=== PATIENT | female | born 1960 | race Caucasian/White ===

== ENCOUNTER 2016-07-08 18:14 | Inpatient (IN) | payer OTHER ==
[~2016-07-08] VITALS: Ht 172.7 cm; Wt 70.0 kg
--- NOTE | ~2016-07-08 | HC ---
[facility] [place] [address] CONSULTATION Name: PAWEL LYON Room #: 539-P ADM IN M.R.#: [id number] Admission: 07/08/16 Attend Phys: Griffin Little MD Discharge: Date of : 58 Report #: [id number] THIS REPORT FOR: //name// CC: Darrius Little REASON FOR CONSULTATION: End-stage renal disease. REASON FOR PRESENTATION: Unable to walk. HISTORY OF PRESENT ILLNESS: This is a 56-year-old with a newly diagnosed myeloma who had hardware placed on her left hip due to a pathological fracture. She has an end-stage renal disease, maintained on hemodialysis. She dialyzes every Thursday, and Thursday. She missed her dialysis yesterday. She presented to the emergency room a few days ago not being able to walk. Plain x-ray did not reveal any new findings. She continued to shepard with her daily social activities, for which she presented to the emergency room yet again yesterday and was admitted for further evaluation and management. On presentation, she was found to have lucent lesions on her left femoral neck along with left femoral condyle and what seems to be a new right femoral neck fracture. She was admitted for further evaluation and management. Her myeloma is a new diagnosis in the last 2-3 months and she is followed by oncology for that. She did not report any neurological symptoms, other than mild numbness in the left anterior thigh. I was asked to evaluate her and manage her dialysis. PAST MEDICAL HISTORY: 1. End-stage renal disease, maintained on dialysis. She previously was on peritoneal dialysis. 2. Hypertension. 3. Right oophorectomy. 4. Cholecystectomy. 5. Status post rotator cuff surgery on the right side. 6. Hernia repair. 7. Fistula. 8. Hypertension. 9. Hep C. 10. Hemorrhoid. 11. Recent left hip fracture with operation. 12. Myeloma. MEDICATIONS: 1. Carvedilol. 2. Atorvastatin. 3. Cinacalcet. 4. Sevelamer. ALLERGIES: No known drug allergies. [facility] [address] [place] [address] CONSULTATION Name: CAMRONPAWEL BRADY Room #: 539-P [facility] IN M.R.#: [id number] Admission: 07/08/16 Attend Phys: Griffin Little MD Discharge: Date of : 58 Report #: [id number] SOCIAL HISTORY: No drug or alcohol abuse. She lives by herself. REVIEW OF SYSTEMS: GENERAL: No fever or chills. CARDIOVASCULAR: No chest pain or palpitation. PULMONARY: No cough or hemoptysis. GASTROINTESTINAL: No nausea or vomiting. MUSCULOSKELETAL: Diffuse pains in both lower extremities, inability to walk with diffuse weakness. NEUROLOGIC: Significant for weakness. PHYSICAL EXAMINATION: GENERAL: She is alert and oriented, no apparent distress. VITAL SIGNS: Blood pressure is 140/96, temperature is 36.8. HEAD AND NECK: No jugular venous distention, no bruit, no thyromegaly. CHEST: Clear to auscultation bilaterally. CARDIOVASCULAR: No rub detected. ABDOMEN: Soft, nontender with no hepatosplenomegaly. LOWER EXTREMITIES: No gross deficits, but she is tender in both hip areas. No edema. LABORATORY DATA: Laboratory values reviewed. Chemistry values reviewed. BUN 50, creatinine 8.5 and calcium 8.3. Hemoglobin 9.5. ASSESSMENT, IMPRESSION AND PLAN: 1. End-stage renal disease. 2. Newly-diagnosed myeloma with what seems to be widespread skeletal metastasis. 3. Hypertension. 4. Status post coronary artery bypass graft. 5. Remote history of gastrointestinal bleeding. 6. Dialysis as scheduled every Thursday, and Thursday. 7. Orthopedic consultation. 8. Heme/Onc consultations. 9. Resume home medications. 10. Will need a [place] [facility] facility and I will talk with the social services about that. 11. I will have to discuss with the long-term plans for her skeletal involvement and whether we can use bisphosphonate on her condition or any of the new agents used to treat bone-related myeloma disease. I am not really sure [address] [address] CONSULTATION Name: PAWEL LYON Room #: 539-P [facility] IN M.R.#: [id number] Admission: 07/08/16 Attend Phys: Griffin Little MD Discharge: Date of : 58 Report #: [id number] about her chemotherapeutic regimen and treatment for her myeloma and I will address with . <ELECTRONICALLY SIGNED> By: Verena Anaya MD 07/11/16 0921 0849 1257 Verena Anaya MD /nt
--- NOTE | ~2016-07-08 | HC ---
[facility] [place] [address] CONSULTATION Name: PAWEL LYON Room #: 539-P ADM IN M.R.#: [id number] Admission: 07/08/16 Attend Phys: Griffin Little MD Discharge: Date of : 58 Report #: [id number] THIS REPORT FOR: //name// CC: Darrius Little DATE OF SERVICE: 07/09/2016 REQUESTING PHYSICIAN: Griffin Little M.D. REASON FOR CONSULTATION: Left hip pain. ALLERGIES: Reported allergy to MORPHINE. PAST MEDICAL HISTORY: Myeloma and end-stage renal disease, on hemodialysis. PAST SURGICAL HISTORY: Previous right hip short IM nail, left hip long IM nail placed for prophylaxis of impending fracture earlier in [address] Sahu. Multiple dialysis access procedures. MEDICATIONS: In the hospital, Lipitor, Lyrica, Colace, Sensipar, Coreg, Renvela, pantoprazole, heparin and tramadol. FAMILY HISTORY: Noncontributory. REVIEW OF SYSTEMS: Positive for acute left hip pain. Negative for fever, chills, drainage, nausea, vomiting or diarrhea. SOCIAL HISTORY: The patient lives in an apartment alone. She was recently discharged from inpatient rehab. She denies any tobacco, alcohol or drug abuse. HISTORY OF PRESENT ILLNESS: The patient is a 56-year-old female with end-stage renal disease and metastatic myeloma, who was recently admitted to the hospital earlier in 2016 with left hip pain. Imaging indicated that she had an impending fracture of the femoral neck and so she underwent prophylactic IM nail fixation. This improved her mobility and she made good progress and she was discharged to inpatient rehab. She returned home where she has approximately 20 stairs up to her apartment and has significant difficulty negotiating these. She is unable to use the walker as she has on the stairs. She has had progressive left hip pain that began several days ago and progressed to the point that she was unable to go to dialysis on Thursday and has prompted a trip to the emergency room and she was admitted. She reports since being in bed for the past day or so, that her left hip pain is feeling better. PHYSICAL EXAMINATION: VITAL SIGNS: Temperature 36.8, pulse 98, respirations 16, blood pressure 142/[address] [address] CONSULTATION Name: PAWEL LYON Room #: 539-P [facility] IN M.R.#: [id number] Admission: 07/08/16 Attend Phys: Griffin Little MD Discharge: Date of : 58 Report #: [id number] and pulse ox 96%. GENERAL: She is a healthy-appearing female, alert and oriented, in no acute distress, lying supine in the hospital bed. EXTREMITIES: Right lower extremity, there is no tenderness to palpation. She has no pain with logroll. She has no pain with Stinchfield. There are no skin changes or masses palpable. She has a grossly normal neurovascular examination at her baseline. Left lower extremity, she has pain with active hip flexion, pain with Stinchfield. There is minimal pain with passive hip flexion. She has no tenderness on anterior, lateral or posterior on the hip. Logroll is negative. The wound is healed, without signs of infection. She has a grossly normal neurovascular examination. The skin is normal appearing. The pelvis is not painful to compression or rocking and the symphysis is only mildly tender. LABORATORY DATA: White blood cell count is 6.6. Differential has 68% neutrophils. IMAGING: A CT scan of the pelvis and femur was obtained. There is stable, well-positioned IM nail on the right hip, that is short nail. There is a stable well-positioned long IM nail of the left hip and femur. There are multiple areas of lytic lesions throughout the pelvis, acetabula and femoral heads and neck. There is a cortical erosion of the anterior aspect of the femoral head on the right hip. There is no evidence of an acute injury on the left hip. IMPRESSION: A 56-year-old female with metastatic myeloma, status post prophylactic fixation of left femoral neck impending fracture in 2017 with previous treatment of her right hip fracture, with acute onset of left hip pain. PLAN: In reviewing the CT scan, I do not see any evidence of an acute mechanical or orthopedic issue. The implant looks stable. There are no signs of an impending fracture on the acetabular side that I appreciate. I discussed with her the imaging and suggested that we try additional physical therapy as the hip is getting better since she has been in the hospital and resting. I suspect that her apartment arrangements with multiple flight of stairs are contributing to her pain and limited mobility. Recommendation would be for inpatient rehab stay and ideally a better long-term living arrangements that will accommodate her decreased mobility secondary to these multiple metastatic lesions. <ELECTRONICALLY SIGNED> By: Geo Neal MD 07/10/16 1130 2034 0225 Geo Neal MD /nt
[2016-07-08 18:14] VITALS: BP 134/79
[~2016-07-08 18:14] MED LIST: ATORVASTATIN CA10 MG PO; AUGMENTIN 500-1 EACH PO; AUGMENTIN 875875 MG PO; BISCOLAX10 MG RECTAL; CEFAZOLIN 1GM VI1 G1 IP; CIPROFLOXACIN500 M1 PO; COLACE100 MG PO; COREG25 MG PO; DEXILANT60 MG PO; DIALYVITE 8000.8 MG PO; DIALYVITE TABL1 EACH PO; DIANEAL IV; ENOXAPARIN30 MG/0.1 SUBQ; EPOGEN3000 UNIT/ IJ; FLONASE 0.05%50 MCG NASAL; FLOVENT HFA 2220 MCG; HEPARIN SO5000 UNIT2 SUBQ; HERBAL SUPPLEMENT; HYDROCODON-ACE1 EAC7 PO; HYDROCODONE-AP1 EAC6 PO; IBUPROFEN 200200 M1 PO; KLOR-CON 1010 MEQ; LIPITOR10 MG PO; LISINOPRIL20 MG; LOPRESSOR50; LOPRESSOR50 PO; LYRICA 50 MG50 MG PO; LYRICA25 MG PO; MEGESTROL ACETA20 MG PO; MEGESTROL ACETA40 MG PO; MIRALAX17 GM PO; MUCINEX1200 MG PO; MULTIVITAMINS1 EAC7 PO; NEPHROCAPS SOFT1 CAP PO; NORCO 5-325 TA1 EACH PO; NORVASC10 MG PO; OMEPRAZOLE 20 M20 M1 PO; ONDANSETRON HCL4 M2 PO; OXYCODONE HCL 55 MG PO; PHENERGAN 25 MG25 M1 PO; PHENERGAN12.5 M2 RECTAL; PRILOSEC 20 MG20 MG PO; PRILOSEC10 MG PO; PROAIR HFA8.5 GM INH; PROMETHAZINE12.5 M1 PO; RENAL CAPS SOFTG1 MG; RENVELA800 MG PO; SENNA PO; SENSIPAR 30 MG30 M1 PO; SYMBICORT160 MCG/4. INH; TOPROL XL50 MG PO; TRAMADOL 50 MG50 MG PO; TUMS PO; TUSSIONEX PENN473 ML PO; TUSSIONEX PENNKI1 ML PO; VANCOMYCIN; VANCOMYCIN1.5 GM/150 IP; VISTARIL 25 MG25 M1 PO; ZOFRAN ODT4 MG PO; ZPAK PO; [UNRECOGNIZED DRUG - OTHER] IV; [UNRECOGNIZED DRUG - OTHER] IV
[2016-07-08 19:18] LABS: ABSOLUTE NEUTROPHILS 4.6 thou/uL (1.4-8.2); BASOPHILS 0.6 % (0.0-2.0); EOSINOPHILS 2.8 % (0.0-3.0); HEMATOCRIT 28.6 % (37.0-47.0); HEMOGLOBIN 9.5 gm/dL (12.0-15.0); MCH 30.4 pg (26.0-34.0); MCHC 33.2 g/dL (28.0-37.0); MCV 91.6 fL (80.0-100.0); MONOCYTES 8.8 % (1.0-8.0); PLATELET COUNT 208 thou/uL (150-400); POLYS 68.8 % (36.0-66.0); RBC 3.12 mil/uL (4.20-5.00); RDW 17.5 % (10.5-14.5); WBC 6.6 thou/uL (4.0-11.0)
[2016-07-08 19:20] LABS: MANUAL DIFF NO
[2016-07-08 19:23] LABS: CALCIUM 8.4 mg/dL (8.5-10.1); POTASSIUM 4.2 mmol/L (3.5-5.1)
[2016-07-08 20:00] VITALS: BP 140/87
[2016-07-08 21:10] VITALS: BP 166/91
[2016-07-08] MEDS ORDERED: TRAMADOL 50 MG50 MG PO (21:33)
[2016-07-08 21:55] VITALS: BP 121/84
[2016-07-08 23:59] VITALS: BP 140/87
[2016-07-09 04:00] VITALS: BP 147/89
[2016-07-09 07:02] LABS: ALBUMIN 2.7 g/dL (3.4-5.0); CALCIUM 8.3 mg/dL (8.5-10.1); CREATININE 8.5 mg/dL (0.6-1.0); POTASSIUM 4.4 mmol/L (3.5-5.1); TOTAL BILIRUBIN 0.3 mg/dL (<0.1-1.0); TOTAL PROTEIN 6.7 g/dL (6.4-8.2)
[2016-07-09 07:53] VITALS: BP 142/96
[2016-07-09 15:48] VITALS: BP 139/90
[2016-07-09 20:00] VITALS: BP 138/73
[2016-07-10 04:45] VITALS: BP 140/88
[2016-07-10 12:14] VITALS: BP 125/76
[2016-07-10 15:46] VITALS: BP 133/46
[2016-07-10 20:00] VITALS: BP 144/89
[2016-07-11 03:35] LABS: HEMATOCRIT 26.7 % (37.0-47.0); HEMOGLOBIN 9.2 gm/dL (12.0-15.0); MCHC 34.6 g/dL (28.0-37.0); MCV 89.5 fL (80.0-100.0); RBC 2.98 mil/uL (4.20-5.00); RDW 17.1 % (10.5-14.5); WBC 4.7 thou/uL (4.0-11.0)
[2016-07-11 03:42] LABS: ALBUMIN 2.6 g/dL (3.4-5.0); CALCIUM 8.9 mg/dL (8.5-10.1); PHOSPHORUS 3.5 mg/dL (2.5-4.9); POTASSIUM 4.4 mmol/L (3.5-5.1)
[2016-07-11 03:44] LABS: CREATININE 4.9 mg/dL (0.6-1.0)
[2016-07-11 04:00] VITALS: BP 142/84
[2016-07-11 09:11] VITALS: BP 128/89
[2016-07-11 20:21] VITALS: BP 125/76
[2016-07-12 16:55] VITALS: BP 125/71
[2016-07-13 11:33] VITALS: BP 115/82
[2016-07-13 16:01] VITALS: BP 127/83
[2016-07-13 19:41] VITALS: BP 126/91
[2016-07-14 04:00] VITALS: BP 132/83
[2016-07-14 07:35] VITALS: BP 139/93
[2016-07-14 16:57] VITALS: BP 137/83
[2016-07-14 20:10] VITALS: BP 130/80
[2016-07-15 03:45] VITALS: BP 123/77
[2016-07-15 07:20] VITALS: BP 133/92
[2016-07-15] MEDS ORDERED: COLACE 100 MG100 MG PO (14:54)
[2016-07-15] MEDS ORDERED: NEXIUM40 MG PO (14:54)
== END 2016-07-15 17:45 | DRG 840 ==
LOC: ER 18:14 → 5S 20:08 → EROBS 20:08 → 5S 21:15
PROVIDERS: Emergency Medicine; Hospitalist; Nurse Practitioner
PROC: 5A1D60Z (ICD-10-PCS; principal; 2016-07-10)
DX: C90.00 Multiple myeloma not having achieved remission (principal); N18.6 End stage renal disease; M84.451A Pathological fracture, right femur, initial encounter for fracture; I12.0 Hypertensive chronic kidney disease with stage 5 chronic kidney disease or end stage renal disease; R26.2 Difficulty in walking, not elsewhere classified; M19.90 Unspecified osteoarthritis, unspecified site; G47.33 Obstructive sleep apnea (adult) (pediatric); I25.10 Atherosclerotic heart disease of native coronary artery without angina pectoris; F32.9 Major depressive disorder, single episode, unspecified; M89.9 Disorder of bone, unspecified; G56.00 Carpal tunnel syndrome, unspecified upper limb; D63.8 Anemia in other chronic diseases classified elsewhere; Z88.6 Allergy status to analgesic agent; Z90.49 Acquired absence of other specified parts of digestive tract; Z90.721 Acquired absence of ovaries, unilateral; Z95.1 Presence of aortocoronary bypass graft; Z87.81 Personal history of (healed) traumatic fracture; Z86.19 Personal history of other infectious and parasitic diseases; Z82.49 Family history of ischemic heart disease and other diseases of the circulatory system; Z99.2 Dependence on renal dialysis
CPT/HCPCS: 10086; 32100

== ENCOUNTER 2016-08-12 17:08 | Emergency (ER) | payer OTHER ==
[~2016-08-12] VITALS: Ht 172.7 cm; Wt 68.0 kg
--- NOTE | ~2016-08-12 | EKG ---
[address] [employer] [place] [address] ELECTROCARDIOGRAM REPORT Name: PAWEL LYON Room #: DEP [facility]#: [id number] Admission: 08/12/16 Attend Phys: Discharge: 08/12/16 Date of : 58 Report #: [id number] THIS REPORT FOR: //name// [facility] ED Test Date: 2016-08-12 Test Time: 17:34:57 Pat Name: PAWEL LYON Department: Room: Gender: F Informatics Coordinator: Lele DEWITT : 1960 Requested By: Jb Eason Order Number: [id number] MD: Ravi Almaraz Measurements Intervals [place] Rate: 105 P: 2 ID: [id number] QRS: 117 QRSD: 125 T: -15 QT: 385 QTc: 509 Interpretive Statements Sinus tachycardia RBBB and LPFB Compared to ECG 05/26/2016 12:11:15 Left posterior fascicular block now present Right bundle-branch block now present Electronically Signed On 08-13-2016 7:45:40 CDT by Ravi Almaraz [email or web address] <ELECTRONICALLY SIGNED> By: Ravi Almaraz MD, [facility] 08/13/16 0745 1734 1734 Ravi Almaraz MD, [facility] /EPI
[~2016-08-12 17:08] MED LIST changes: +COLACE 100 MG100 MG PO; +NEXIUM40 MG PO
[2016-08-12 17:44] LABS: ABSOLUTE NEUTROPHILS 4.4 thou/uL (1.4-8.2); BASOPHILS 0.7 % (0.0-2.0); EOSINOPHILS 3.7 % (0.0-3.0); HEMATOCRIT 27.7 % (37.0-47.0); HEMOGLOBIN 9.5 gm/dL (12.0-15.0); LYMPHOCYTES 13.7 % (24.0-44.0); MCH 31.3 pg (26.0-34.0); MCHC 34.5 g/dL (28.0-37.0); MCV 90.7 fL (80.0-100.0); MONOCYTES 8.2 % (1.0-8.0); PLATELET COUNT 270 thou/uL (150-400); POLYS 73.7 % (36.0-66.0); RBC 3.05 mil/uL (4.20-5.00); RDW 16.9 % (10.5-14.5)
[2016-08-12 17:47] LABS: MANUAL DIFF NO
[2016-08-12 17:49] LABS: CALCIUM 9.3 mg/dL (8.5-10.1); CREATININE 3.9 mg/dL (0.6-1.0); POTASSIUM 3.8 mmol/L (3.5-5.1)
[2016-08-12 17:53] LABS: TOTAL BILIRUBIN 0.3 mg/dL (<0.1-1.0); TOTAL PROTEIN 7.3 g/dL (6.4-8.2)
[2016-08-12] MEDS ORDERED: TRAMADOL 50 MG50 MG PO (18:24)
== END 2016-08-12 19:25 | disposition home or self-care (01) ==
LOC: ER 17:08
PROVIDERS: Emergency Medicine
DX: I12.0 Hypertensive chronic kidney disease with stage 5 chronic kidney disease or end stage renal disease (principal); N18.6 End stage renal disease; Z99.2 Dependence on renal dialysis; C90.00 Multiple myeloma not having achieved remission; G56.03 Carpal tunnel syndrome, bilateral upper limbs; M19.90 Unspecified osteoarthritis, unspecified site; Z95.5 Presence of coronary angioplasty implant and graft; Z90.721 Acquired absence of ovaries, unilateral; Z88.5 Allergy status to narcotic agent

== ENCOUNTER 2016-08-19 10:06 | Inpatient (IN) | payer OTHER ==
[~2016-08-19] VITALS: Ht 172.7 cm; Wt 68.0 kg
--- NOTE | ~2016-08-19 | HC ---
[facility] [place] [address] CONSULTATION Name: PAWEL LYON Room #: 440-P [facility] IN M.R.#: [id number] Admission: 08/19/16 Attend Phys: Griffin Little MD Discharge: 08/22/16 Date of : 58 Report #: [id number] THIS REPORT FOR: //name// CC: Darrius Little DATE OF SERVICE: 08/19/2016 ATTENDING PHYSICIAN: Griffin Little M.D. REASON FOR CONSULTATION: End-stage renal disease. HISTORY OF PRESENT ILLNESS: This is a 56-year-old patient well known to our service with recently diagnosed multiple myeloma, metastatic to bones, has been rather debilitated and recently had surgery for carpal tunnel on her left hand. She had worsening debilitation, inability to get around, has missed the last week of dialysis treatments and I was taken by ambulance to the Emergency Room with complaints of confusion and poor appetite. PAST MEDICAL HISTORY: 1. She has multiple myeloma, multiple bony lesions, particularly the pubis symphysis, femoral necks and other bony areas. She has had radiation therapy to the left femoral area and hardware placed there and removed hardware on the right hip for a hip fracture, but that was several years ago. She has been on dialysis for several years as well initially PD and now hemo. She has also had previous coronary bypass surgery as well as a recent left carpal tunnel surgery, right rotator cuff repair. 2. History of hepatitis C. She also had prior cholecystectomy. REVIEW OF SYSTEMS: GENERAL: She has been feeling poorly. EYES: Her vision has been okay. ENT: Hearing okay and swallows okay. No mouth sores or ulcers. ENDOCRINE: No diabetes or thyroid disease. RESPIRATORY: She does get easily short-winded. CARDIAC: She had previous coronary bypass and she has been having some chest pains. GASTROINTESTINAL: She has poor appetite with occasional vomiting. GENITOURINARY: Little urine output. NEUROLOGIC: Generalized weakness and musculoskeletal pain in both hands particularly the left one, pain in the hip areas with walking, weakness and debility, difficulty getting around. PSYCHIATRIC: Denies depression or anxiety. PHYSICAL EXAMINATION: GENERAL: This is a somewhat chronically ill appearing patient. [address] [address] CONSULTATION Name: PAWEL LYON Room #: 440-P [facility] IN M.R.#: [id number] Admission: 08/19/16 Attend Phys: Griffin Little MD Discharge: 08/22/16 Date of : 58 Report #: [id number] SKIN: Unremarkable. SKELETAL: Nonobese. HEENT: Extraocular movements are full. Vision is intact. Hearing is intact. Mucous membranes are moist. NECK: Veins are slightly distended. CHEST: Shows diminished breath sounds at the bases. HEART: Distant. ABDOMEN: Soft and nontender. EXTREMITIES: Show no edema. NEUROLOGIC: Shows her to be somewhat confused and mixing up recent events and clearly not herself, as well as anxious, little bit of tremor, generalized weakness and symmetric. LABORATORY DATA: Creatinine 12.9, serum CO2 only 19, potassium elevated at 5.2, hemoglobin 9.6. ASSESSMENT AND PLAN: 1. Uremia with confusion. As she has not dialyzed in a week, she is getting increasingly confused and forgetful, confusing events. She will need dialysis and may be further workup. 2. Hyperkalemia. Potassium is up a little bit. She will need dialysis and careful followup. 3. End-stage renal disease with metabolic encephalopathy. 4. Hypertension. Blood pressure is up. We will acutely dialyze her and take some fluid off. 5. Metastatic multiple myeloma with multiple lytic lesions. She has received some localized radiation. She has not yet received chemotherapy, followed by Dr. Ludmila Mina. <ELECTRONICALLY SIGNED> By: Rudi Locke MD 08/25/16 1012 1458 0220 Anton Vega MD /nt
--- NOTE | ~2016-08-19 | HC ---
[facility] [place] [address] CONSULTATION Name: PAWEL LYON Room #: 440-P ADM IN M.R.#: [id number] Admission: 08/19/16 Attend Phys: Griffin Little MD Discharge: Date of : 58 Report #: [id number] THIS REPORT FOR: //name// CC: Darrius Omid Griffin Little DATE OF SERVICE: 08/20/2016 DATE OF CONSULTATION: 08/20/2016 ATTENDING: Griffin iLttle MD REASON FOR CONSULTATION: Chest pain. HISTORY OF PRESENT ILLNESS: This is a 56-year-old female patient who has a history of multiple myeloma; end-stage renal disease, on dialysis; coronary artery disease, having undergone aortocoronary bypass grafting one year ago, presented for left-sided discomfort. Upon questioning, the patient denies having any chest pain, pressure, tightness or heaviness. She states she presented to the Emergency Room principally with complaints of weakness. Review of the records state that she told that she was having soreness in the left chest region that was fairly constant. She did state it was worse with inspiration and expiration. She denies any exertional symptoms. Prior to her bypass, she had no symptoms whatsoever. She has no nocturnal symptomatology. No orthopnea or PND. No syncope or near syncope. No palpitations. She does have what appears to be a pathological fracture from her multiple myeloma and causes her ambulation to be quite limited. She does use a walker. She states that she has been having significant nausea and vomiting, although that is denied to the ER doctor as well as the attending physician. No irregular rhythms were identified on the monitor. PAST MEDICAL HISTORY: Significant for: 1. Chronic renal disease. 2. Multiple myeloma, by history. 3. Atypical chest discomfort. 4. Carpal tunnel syndrome. 5. Hypertension. 6. Hepatitis C. 7. GI bleed. 8. Osteoarthritis. PAST SURGICAL HISTORY: Significant for: 1. Right oophorectomy and fallopian tubectomy. 2. Right rotator cuff tear. 3. Right leg ligament tear. 4. Hernia repair. [facility] [address] [place] [address] CONSULTATION Name: CAMRONPAWEL BRADY Room #: 440-P ADM IN M.R.#: [id number] Admission: 08/19/16 Attend Phys: Griffin Little MD Discharge: Date of : 58 Report #: [id number] 5. Carpal tunnel surgery, left arm. 6. Dialysis catheter placement. 7. Aortocoronary bypass grafting. 8. Stabilization of left hip fracture. DIAGNOSTIC AND LABORATORY DATA: Electrocardiogram demonstrated sinus mechanism, nonspecific ST-T wave changes. Laboratory demonstrates hemoglobin and hematocrit of 9.6 and 29.0 with a platelet count of 286,000. BUN and creatinine of 90 and 12.9. Potassium was 5.2 on admission. Troponins were less than 0.04. Radiologic demonstrates plate-like atelectasis left lung with no infiltrates. No acute cardiac process. MEDICATIONS: Ultram, Nexium, Colace, Sensipar, Coreg, Lyrica, ____ and Lipitor. She discontinued the Renvela. REVIEW OF SYSTEMS: Except for symptoms previously mentioned and those commensurate with comorbid state, the 10-point review of systems is negative. PHYSICAL EXAMINATION: GENERAL: Well-developed white female, resting comfortably in no acute distress. VITAL SIGNS: Noted and reviewed in the chart. HEENT: Normocephalic, atraumatic. Pupils are equal, round, reactive to light and accommodation. Extraocular muscles are intact. Sclerae and conjunctivae are anicteric. NECK: JVD is normal. Carotid upstrokes are bilaterally symmetrical. No bruits are heard. No thyromegaly. No lymphadenopathy. LUNGS: Clear to auscultation. No wheezes, rhonchi or crackles. No CVA tenderness. CARDIAC: Demonstrates a regular rhythm. Normal first and second heart sounds. No ventricular or atrial gallops, no rubs noted. No murmurs. No lifts or heaves, PMI normal. ABDOMEN: Soft, nontender, nondistended. Normal bowel sounds. EXTREMITIES: Without cyanosis, clubbing or edema. Distal pulses are intact. DTR symmetrical. NEUROLOGICAL: Cranial nerves 2-12 are grossly normal and symmetrical. PSYCHIATRIC: Alert, oriented with normal affect. SKIN: Warm and dry. IMPRESSION AND PLAN: 1. Chest pain, this does not appear to be cardiac in nature. This is more noncardiac and a chronic situation. In view of this, I would not proceed with anything further at this juncture to further delineate or evaluate these symptoms. [address] [address] CONSULTATION Name: PAWEL LYON Room #: 440-P ADM IN M.R.#: [id number] Admission: 08/19/16 Attend Phys: Griffin Little MD Discharge: Date of : 58 Report #: [id number] 2. Coronary artery disease by history, status post bypass. This was identified by perfusion scanning. Asymptomatic, appears to be stable at the present time. 3. Hypertension. Blood pressure seems to be adequately controlled on the current regimen, continue as is. 4. Multiple myeloma as per primary care oncology. DICTATION ENDS HERE <ELECTRONICALLY SIGNED> By: Juan Pablo Alaniz MD 08/21/16 2219 1841 0106 Juan Pablo Alaniz MD /nt
--- NOTE | ~2016-08-19 | EKG ---
[address] [address] ELECTROCARDIOGRAM REPORT Name: PAWEL LYON Room #: 440-P ADM IN M.R.#: [id number] Admission: 08/19/16 Attend Phys: Griffin Little MD Discharge: Date of : 58 Report #: [id number] THIS REPORT FOR: //name// [facility] ED Test Date: 2016-08-19 Test Time: 10:11:04 Pat Name: PAWEL LYON Department: Room: [facility] Gender: F Learning Disabilities Resource Teacher: MZOOK : 1960 Requested By: Ricardo Hidalgo Order Number: [id number] MD: Ganesh Flynn Measurements Intervals [place] Rate: 87 P: 41 HI: 189 QRS: 91 QRSD: 120 T: 7 QT: 383 QTc: 461 Interpretive Statements Sinus rhythm RBBB and LPFB Compared to ECG 08/12/2016 17:34:57 Sinus tachycardia no longer present Electronically Signed On 08-19-2016 17:10:41 CDT by Ganesh Flynn [email or web address] <ELECTRONICALLY SIGNED> By: Ganesh Flynn MD 08/19/16 6106 1011 1011 Ganesh Flynn MD /JANICE
[2016-08-19 10:07] VITALS: BP 172/98
[2016-08-19 10:21] LABS: ABSOLUTE NEUTROPHILS 4.7 thou/uL (1.4-8.2); BASOPHILS 0.5 % (0.0-2.0); EOSINOPHILS 2.8 % (0.0-3.0); HEMOGLOBIN 9.6 gm/dL (12.0-15.0); MCH 30.9 pg (26.0-34.0); MCV 93.7 fL (80.0-100.0); MONOCYTES 6.7 % (1.0-8.0); PLATELET COUNT 286 thou/uL (150-400); RBC 3.09 mil/uL (4.20-5.00); RDW 16.9 % (10.5-14.5); WBC 6.3 thou/uL (4.0-11.0)
[2016-08-19 10:22] LABS: MANUAL DIFF NO
[2016-08-19 10:35] LABS: ANION GAP 21 mmol/L (7-16); BUN 90 mg/dL (7-18); CALCIUM 9.6 mg/dL (8.5-10.1); CHLORIDE 98 mmol/L (98-107); CO2 19 mmol/L (21-32); CREATININE 12.9 mg/dL (0.6-1.0); GLUCOSE 95 mg/dL (74-106); POTASSIUM 5.2 mmol/L (3.5-5.1); SODIUM 138 mmol/L (136-145)
[2016-08-19 10:39] LABS: NT-PRO BRAIN NAT PEPTIDE 9873 pg/mL (<300); TROPONIN-I < 0.04 ng/mL (<0.04-0.07)
[2016-08-19 13:09] VITALS: BP 169/100
[2016-08-19 14:16] VITALS: BP 172/112
[2016-08-19 16:20] VITALS: BP 126/72
[2016-08-19 19:52] VITALS: BP 150/89
[2016-08-20 01:33] LABS: HEMATOCRIT 28.6 % (37.0-47.0); HEMOGLOBIN 9.8 gm/dL (12.0-15.0); MCH 31.2 pg (26.0-34.0); MCHC 34.2 g/dL (28.0-37.0); MCV 91.2 fL (80.0-100.0); RBC 3.14 mil/uL (4.20-5.00); RDW 16.3 % (10.5-14.5); WBC 5.8 thou/uL (4.0-11.0)
[2016-08-20 01:49] LABS: ANION GAP 13 mmol/L (7-16); BUN 31 mg/dL (7-18); CALCIUM 9.4 mg/dL (8.5-10.1); CHLORIDE 97 mmol/L (98-107); CO2 28 mmol/L (21-32); GLUCOSE 127 mg/dL (74-106); SODIUM 138 mmol/L (136-145); TROPONIN-I < 0.04 ng/mL (<0.04-0.07)
[2016-08-20 01:50] LABS: CREATININE 6.3 mg/dL (0.6-1.0); POTASSIUM 4.1 mmol/L (3.5-5.1)
[2016-08-20 05:30] VITALS: BP 147/93
[2016-08-20 08:00] VITALS: BP 145/94
[2016-08-20 08:28] VITALS: BP 145/94
[2016-08-20 15:57] VITALS: BP 168/89
[2016-08-20 17:09] LABS: HEP B SURFACE Ab(ANTI-HBS Reactive (())
[2016-08-20 19:37] VITALS: BP 147/89
[2016-08-21 04:14] VITALS: BP 129/82
[2016-08-21 12:00] VITALS: BP 129/82
[2016-08-21 12:55] VITALS: BP 138/87
[2016-08-21 16:03] VITALS: BP 145/82
[2016-08-21 20:05] VITALS: BP 133/70
[2016-08-22 04:15] VITALS: BP 140/92
[2016-08-22 08:00] VITALS: BP 137/73
== END 2016-08-22 16:38 | DRG 313 ==
LOC: ER 10:06 → EROBS 12:42 → 4S 12:42
PROVIDERS: Emergency Medicine; Internal Medicine; Internal Medicine Nephrology
PROC: 5A1D60Z (ICD-10-PCS; principal; 2016-08-19)
DX: R07.89 Other chest pain (principal); N18.6 End stage renal disease; G93.41 Metabolic encephalopathy; I12.0 Hypertensive chronic kidney disease with stage 5 chronic kidney disease or end stage renal disease; C90.00 Multiple myeloma not having achieved remission; C79.51 Secondary malignant neoplasm of bone; R26.9 Unspecified abnormalities of gait and mobility; M62.81 Muscle weakness (generalized); I25.10 Atherosclerotic heart disease of native coronary artery without angina pectoris; M19.90 Unspecified osteoarthritis, unspecified site; E87.5 Hyperkalemia; Z92.3 Personal history of irradiation; Z90.49 Acquired absence of other specified parts of digestive tract; Z90.721 Acquired absence of ovaries, unilateral; Z95.1 Presence of aortocoronary bypass graft; Z99.2 Dependence on renal dialysis; Z88.5 Allergy status to narcotic agent; Z87.81 Personal history of (healed) traumatic fracture; Z79.899 Other long term (current) drug therapy; Z86.19 Personal history of other infectious and parasitic diseases; Z90.79 Acquired absence of other genital organ(s)

== ENCOUNTER 2016-11-19 23:16 | Emergency (ER) | payer OTHER ==
[~2016-11-19] VITALS: Ht 172.7 cm; Wt 68.0 kg
--- NOTE | ~2016-11-19 | EKG ---
[address] [place] [address] [place] [address] ELECTROCARDIOGRAM REPORT Name: PAWEL LYON [facility] [id number] Admission: 11/19/16 Attend Phys: Discharge: 11/20/16 Date of : 58 Report #: [id number] THIS REPORT FOR: //name// [facility] ED Test Date: 2016-11-19 Test Time: 23:46:13 Pat Name: PAWEL LYON Department: Room: Gender: F Supervisor Model Making: KELLY : 1960 Requested By: Leena Dukes Order Number: [id number] MD: Ravi Almaraz Measurements Intervals [place] Rate: 91 P: 35 IA: 198 QRS: 88 QRSD: 125 T: 11 QT: 389 QTc: 479 Interpretive Statements Sinus rhythm Borderline prolonged IA interval Right bundle branch block Compared to ECG 08/19/2016 10:11:04 No significant change was found Electronically Signed On 11-20-2016 8:00:33 CDT by Ravi Almaraz [email or web address] <ELECTRONICALLY SIGNED> By: Ravi Almaraz MD, [facility] 11/20/16 0800 45 45 Ravi Almaraz MD, [facility] /EPI
[~2016-11-19 23:16] MED LIST changes: +ACETAMINOPHEN-1 EAC1 PO; +ROBAXIN500 MG PO
[2016-11-20 00:31] LABS: ABSOLUTE NEUTROPHILS 3.4 thou/uL (1.4-8.2); BASOPHILS 0.7 % (0.0-2.0); EOSINOPHILS 3.7 % (0.0-3.0); HEMATOCRIT 31.2 % (37.0-47.0); HEMOGLOBIN 10.3 gm/dL (12.0-15.0); LYMPHOCYTES 19.5 % (24.0-44.0); MCH 28.8 pg (26.0-34.0); MCHC 33.1 g/dL (28.0-37.0); MCV 87.1 fL (80.0-100.0); MONOCYTES 9.2 % (1.0-8.0); PLATELET COUNT 283 thou/uL (150-400); POLYS 66.9 % (36.0-66.0); RBC 3.58 mil/uL (4.20-5.00); WBC 5.1 thou/uL (4.0-11.0)
[2016-11-20 00:39] LABS: CALCIUM 8.9 mg/dL (8.5-10.1); CREATININE 7.9 mg/dL (0.6-1.0); POTASSIUM 5.4 mmol/L (3.5-5.1)
[2016-11-20 00:41] LABS: MANUAL DIFF NO
== END 2016-11-20 02:15 | disposition home or self-care (01) ==
LOC: ER 23:16
PROVIDERS: Emergency Medicine
DX: R53.81 Other malaise (principal); R53.83 Other fatigue; K64.9 Unspecified hemorrhoids; M19.90 Unspecified osteoarthritis, unspecified site; I10 Essential (primary) hypertension; Z99.2 Dependence on renal dialysis; Z88.5 Allergy status to narcotic agent; Z90.49 Acquired absence of other specified parts of digestive tract; Z90.721 Acquired absence of ovaries, unilateral; Z95.5 Presence of coronary angioplasty implant and graft; Z86.19 Personal history of other infectious and parasitic diseases; Z98.890 Other specified postprocedural states

== ENCOUNTER 2016-12-03 15:32 | Emergency (ER) | payer OTHER ==
[~2016-12-03] VITALS: Ht 172.7 cm; Wt 68.0 kg
== END 2016-12-03 16:58 | disposition home or self-care (01) ==
LOC: ER 15:32
DX: S92.512A Displaced fracture of proximal phalanx of left lesser toe(s), initial encounter for closed fracture (principal); I10 Essential (primary) hypertension; M19.90 Unspecified osteoarthritis, unspecified site; Z95.1 Presence of aortocoronary bypass graft; Z98.890 Other specified postprocedural states; Z85.830 Personal history of malignant neoplasm of bone; Z99.2 Dependence on renal dialysis; Z88.5 Allergy status to narcotic agent; W22.8XXA Striking against or struck by other objects, initial encounter; Y93.01 Activity, walking, marching and hiking; Y92.89 Other specified places as the place of occurrence of the external cause; Y99.8 Other external cause status

== ENCOUNTER 2016-12-29 07:36 | Emergency (ER) | payer OTHER ==
[~2016-12-29] VITALS: Ht 172.7 cm; Wt 68.0 kg
== END 2016-12-29 10:04 | disposition home or self-care (01) ==
LOC: ER 07:36
DX: S32.591A Other specified fracture of right pubis, initial encounter for closed fracture (principal); S32.592A Other specified fracture of left pubis, initial encounter for closed fracture; R42 Dizziness and giddiness; I10 Essential (primary) hypertension; I25.10 Atherosclerotic heart disease of native coronary artery without angina pectoris; Z95.1 Presence of aortocoronary bypass graft; Y99.8 Other external cause status; Y92.39 Other specified sports and athletic area as the place of occurrence of the external cause; Y93.89 Activity, other specified; W18.30XA Fall on same level, unspecified, initial encounter

== ENCOUNTER 2017-01-03 11:50 | Inpatient (IN) | payer OTHER ==
[~2017-01-03] VITALS: Ht 172.7 cm; Wt 71.0 kg
--- NOTE | ~2017-01-03 | HC ---
[facility] [place] [address] CONSULTATION Name: PAWEL LYON Room #: 426-P [facility] IN M.R.#: [id number] Admission: 01/03/17 Attend Phys: Luanne Weaver Discharge: 01/06/17 Date of : 58 Report #: [id number] THIS REPORT FOR: //name// CC: Darrius Weaver DATE OF SERVICE: 01/03/2017 NEPHROLOGY CONSULTATION DATE OF SERVICE: 01/03/2017 ATTENDING PHYSICIAN: Dr. Weaver. REASON FOR CONSULTATION: End-stage renal disease and hyperkalemia. HISTORY OF PRESENT ILLNESS: Chronic dialysis patient, well known to our service, has through the course of this year developed the diagnosis of multiple myeloma with multiple metastatic lesions, currently on chemotherapy. She is status post radiation therapy to her left femur and pelvic area for myeloma lesions. She has become progressively debilitated, fell and hurt her tailbone as well as been unable to walk and get to dialysis, has missed 2 dialysis treatments this week. PAST MEDICAL HISTORY: She has had coronary bypass surgery, end-stage renal disease longstanding, myeloma, currently on chemotherapy, metastatic to bone, history of hypertension and a previous carpal tunnel surgery, right rotator cuff. SOCIAL HISTORY: No cigarettes or alcohol. HOME MEDICATIONS: List being compiled. REVIEW OF SYSTEMS: GENERAL: She has been doing poorly. EYES: Her vision has no problems. ENT: Hearing okay, swallows okay. No mouth ulcers. ENDOCRINE: No diabetes or thyroid disease. RESPIRATORY: Not short-winded, no pleuritic pain, cough or hemoptysis. CARDIOVASCULAR: She is not having currently any chest pain. She is a little bit swollen in the legs. GASTROINTESTINAL: Appetite fair at best. GENITOURINARY: Making much urine. MUSCULOSKELETAL: Lots of pain, particularly in the coccyx and in the pelvis and groin areas. This is acute and chronic. NEUROLOGIC: Generalized weakness, unable to walk. [facility] [address] [place] [address] CONSULTATION Name: PAWEL LYON Room #: 426-P [facility] IN [facility].#: [id number] Admission: 01/03/17 Attend Phys: Luanne Weaver Discharge: 01/06/17 Date of : 58 Report #: [id number] PHYSICAL EXAMINATION: GENERAL: This is a reasonably stable appearing patient seen in the Emergency Department. SKIN: Unremarkable. SKELETAL: Unable to move her legs without much pain. HEENT: Extraocular movements are full. Vision intact. Hearing intact. Mucous membranes moist. Tongue, buccal mucosa benign. NECK: Supple. CHEST: Clear to auscultation. HEART: Regular. ABDOMEN: Soft and nontender. EXTREMITIES: 1+ peripheral edema. NEUROLOGIC: Generalized weakness. LABORATORY DATA: Hemoglobin 11.6. Sodium 136, potassium 6.6, chloride 97, bicarbonate 20, BUN 126, creatinine 10.5. ASSESSMENT AND PLAN: 1. End-stage renal disease, missed dialysis, due for treatments. 2. Hyperkalemia. We will treat with dialysis. 3. Multiple myeloma, on chemotherapy with examination to bones. 4. History of coronary bypass. 5. Generalized debility. <ELECTRONICALLY SIGNED> By: Anton Vega MD 01/07/17 1044 1432 1508 Anton Vega MD /nt
--- NOTE | ~2017-01-03 | EKG ---
[address] [place] [address] ELECTROCARDIOGRAM REPORT Name: PAWEL LYON Room #: 170-2 ADM IN M.R.#: [id number] Admission: 01/03/17 Attend Phys: Luanne Weaver Discharge: Date of : 58 Report #: [id number] THIS REPORT FOR: //name// [facility] ED Test Date: 2017-01-03 Test Time: 12:08:41 Pat Name: PAWEL LYON Department: Room: 170 Gender: F Structures Engineer: lety : 1960 Requested By: Elinor Torres Order Number: [id number] MD: Ganesh Flynn Measurements Intervals [place] Rate: 109 P: 43 VA: 177 QRS: 104 QRSD: 129 T: -9 QT: 356 QTc: 480 Interpretive Statements Sinus tachycardia RBBB and LPFB Compared to ECG 11/19/2016 23:46:13 Left posterior fascicular block now present ST (T wave) deviation now present Sinus rhythm no longer present Electronically Signed On 01-03-2017 15:23:28 CDT by Ganesh Flynn [email or web address] <ELECTRONICALLY SIGNED> By: Ganesh Flynn MD 01/03/17 1523 1208 1208 Ganesh Flynn MD /EPI
[2017-01-03 11:51] VITALS: BP 131/92
[2017-01-03 12:33] LABS: HEMOGLOBIN 11.6 gm/dL (12.0-15.0); MCH 29.3 pg (26.0-34.0); MCHC 31.4 g/dL (28.0-37.0); MCV 93.4 fL (80.0-100.0); RBC 3.96 mil/uL (4.20-5.00); RDW 19.8 % (10.5-14.5); WBC 12.2 thou/uL (4.0-11.0)
[2017-01-03 12:35] LABS: MANUAL DIFF YES
[2017-01-03 12:55] LABS: ALBUMIN 3.2 g/dL (3.4-5.0); ALKALINE PHOSPHATASE 139 U/L (46-116); ANION GAP 19 mmol/L (7-16); BUN 126 mg/dL (7-18); CALCIUM 9.5 mg/dL (8.5-10.1); CHLORIDE 97 mmol/L (98-107); CO2 20 mmol/L (21-32); CREATININE 10.5 mg/dL (0.6-1.0); GLUCOSE 112 mg/dL (74-106); SGOT 35 U/L (15-37); SGPT 29 U/L (30-65); TOTAL BILIRUBIN 0.4 mg/dL (<0.1-1.0); TOTAL PROTEIN 7.2 g/dL (6.4-8.2); TROPONIN-I < 0.04 ng/mL (<0.04-0.07)
[2017-01-03 12:57] LABS: POTASSIUM 6.6 mmol/L (3.5-5.1); SODIUM 136 mmol/L (136-145)
[2017-01-03 13:20] LABS: METAMYELOCYTES 1 %; TOTAL CELL COUNT 100
[2017-01-03 13:21] LABS: ANISOCYTOSIS 3+; PLATELET COUNT 212 thou/uL (150-400); POLYCHROMASIA SLIGHT
[2017-01-03 14:29] LABS: URINE BILIRUBIN NEGATIVE (Negative); URINE BLOOD TRACE (Negative); URINE COLOR YELLOW; URINE GLUCOSE-RANDOM* NEGATIVE (Negative); URINE KETONES NEGATIVE (Negative); URINE NITRITE NEGATIVE (Negative); URINE PROTEIN (DIPSTICK) 1+ (Negative); URINE UROBILINOGEN 0.2 E.U./dl (0.2-1.0)
[2017-01-03 14:37] LABS: AMP/METHAMP Negative (Negative); BARBITURATES Negative (Negative); BENZODIAZEPINES Negative (Negative); COCAINE Negative (Negative); METHADONE Negative (Negative); OPIATES Negative (Negative); PCP Negative (Negative); THC Negative (Negative)
[2017-01-03 14:47] LABS: CASTS None Seen /LPF (None Seen); CRYSTALS None Seen /LPF (None Seen); SQUAMOUS 0-3 Few /LPF (0-3)
[2017-01-03 14:48] LABS: BACTERIA 1-9 Few /HPF (None Seen); URINE RBC 0-2 Rare /HPF (0-2); URINE WBC None Seen /HPF (0-5)
[2017-01-03 18:02] VITALS: BP 116/54
[2017-01-04 04:05] VITALS: BP 111/67
[2017-01-04 04:09] LABS: ALBUMIN 2.5 g/dL (3.4-5.0); CALCIUM 9.4 mg/dL (8.5-10.1)
[2017-01-04 04:11] LABS: CREATININE 4.8 mg/dL (0.6-1.0); POTASSIUM 4.4 mmol/L (3.5-5.1)
[2017-01-04 07:19] VITALS: BP 98/71
[2017-01-04 15:46] VITALS: BP 107/71
[2017-01-04 20:00] VITALS: BP 102/75
[2017-01-04] MEDS ORDERED: NORCO 5-325 TA1 EACH PO (21:22)
[2017-01-05 05:30] VITALS: BP 111/75
[2017-01-05 16:00] VITALS: BP 84/56
[2017-01-05 19:43] VITALS: BP 94/62
[2017-01-06 08:15] VITALS: BP 100/68
[2017-01-06 15:54] VITALS: BP 109/66
== END 2017-01-06 18:30 | DRG 542 ==
LOC: ER 11:50 → EROBS 13:41 → 4E 13:41
PROVIDERS: Internal Medicine Nephrology; Physician Assistant
PROC: 5A1D70Z Performance of Urinary Filtration, Intermittent, Less than 6 Hours Per Day (ICD-10-PCS; principal; 2017-01-03)
DX: M84.454A Pathological fracture, pelvis, initial encounter for fracture (principal); G93.40 Encephalopathy, unspecified; N18.6 End stage renal disease; C90.00 Multiple myeloma not having achieved remission; I12.9 Hypertensive chronic kidney disease with stage 1 through stage 4 chronic kidney disease, or unspecified chronic kidney disease; Z60.2 Problems related to living alone; I25.10 Atherosclerotic heart disease of native coronary artery without angina pectoris; E87.5 Hyperkalemia; M19.90 Unspecified osteoarthritis, unspecified site; Z95.1 Presence of aortocoronary bypass graft; Z86.19 Personal history of other infectious and parasitic diseases; Z90.721 Acquired absence of ovaries, unilateral; Z90.49 Acquired absence of other specified parts of digestive tract; Z88.6 Allergy status to analgesic agent; Z91.19 Patient's noncompliance with other medical treatment and regimen; Z23 Encounter for immunization
CPT/HCPCS: 10783; 32100

== ENCOUNTER 2017-03-06 15:38 | Inpatient (IN) | payer OTHER ==
[~2017-03-06] VITALS: Ht 172.7 cm; Wt 67.5 kg
--- NOTE | ~2017-03-06 | HC ---
[facility] [address] [place] [address] CONSULTATION Name: PAWEL LYON Room #: 442-P [facility] IN M.R.#: [id number] Admission: 03/06/17 Attend Phys: Luanne Weaver Discharge: 03/10/17 Date of : 58 Report #: [id number] THIS REPORT FOR: //name// CC: Darrius Weaver DATE OF SERVICE: 03/07/2017 HISTORY OF PRESENT ILLNESS: This is a 56-year-old female patient who was seen by me, she woke up yesterday morning and she could not move the left arm. She also noticed weakness in the right arm, which is mostly in the shoulder area. It started out without trauma and she said she sleeps on her back. She does have a history of carpal tunnel syndrome and some tremor which she attributes to Lyrica. She does not feel she is under stress. REVIEW OF SYSTEMS: Very extensive in this patient. She is a dialysis patient. Dr. Weaver indicated that she has multiple myeloma. She has a pathological fracture of the pelvis. She has a history of GI bleed. This was her relevant 14-point review of system. PAST MEDICAL HISTORY: Negative for these kind of symptoms. FAMILY HISTORY: Negative for early age stroke. SOCIAL HISTORY: She does not smoke or drink alcohol. PHYSICAL EXAMINATION: Indicate she is alert, responsive, oriented, able to follow simple and complex command. She believes her memory is at her baseline. Cranial nerve examination 2-12 looks mostly unremarkable. She is profoundly weak in the left upper extremities. She does not have much movement in the left hand. She has virtually no movement in extension, but does have some movement in flexion. She indicates she is quite a bit weak in the right shoulder area. She is also having trouble with the legs, but those are old. She does not have respiratory difficulty. She is reasonably a well-built individual. LABORATORY DATA: Her white count is 11.2. She is not on any blood thinner except aspirin. IMPRESSION: It is very difficult to perform in this patient. She had a pretty profound weakness on the left arm. I discussed the MRI with the radiologist. There is no stroke or any cervical spine lesion which can explain the patient's symptoms. Since she is a dialysis patient, we have done only MRI without contrast. I had multiple discussions with the patient and I discussed with her that we do not know the diagnosis. I discussed our options with her. I discussed the option of spinal tap. I discussed indication, potential complication, and alternatives. She understands it. She understands very well [address] [address] CONSULTATION Name: PAWEL LYON Room #: 442-P [facility] IN M.R.#: [id number] Admission: 03/06/17 Attend Phys: Luanne Weaver Discharge: 03/10/17 Date of : 58 Report #: [id number] the complication of spinal tap. She wants to proceed with the spinal tap. I think that will be desirable to do that and if that is negative, then she need EMG, but we do not have an EMG machine in the hospital. I have discussed all her options and limitation of our hospital and she wants to proceed with spinal tap and then decide from there. I discussed the patient with Dr. Weaver. This consult was put this morning and was done this morning, but since then, I have seen her multiple times and this is a combined note and is being dictated now because I wanted to look at the MRI before I dictate. More than 50 minutes of [id number] time has been spent taking care of this patient today and majority of that time has been spent counseling the patient on multiple matters. Thank you very much for this referral. <ELECTRONICALLY SIGNED> By: Elder Ricketts MD 03/11/17 1347 1539 2242 Elder Ricketts MD /nt
--- NOTE | ~2017-03-06 | EKG ---
[place] [address] [facility] [place] [address] ELECTROCARDIOGRAM REPORT Name: PAWEL LYON Room #: 442-P ADM IN M.R.#: [id number] Admission: 03/06/17 Attend Phys: Luanne Weaver Discharge: Date of : 58 Report #: [id number] THIS REPORT FOR: //name// [facility] ED Test Date: 2017-03-06 Test Time: 16:21:39 Pat Name: PAWEL LYON Department: Room: 442 Gender: F Senior Gis Analyst: [id number] : 1960 Requested By: Monica Palencia Order Number: [id number] MD: Ravi Almaraz Measurements Intervals [place] Rate: 118 P: 31 NC: 140 QRS: 113 QRSD: 117 T: -49 QT: 340 QTc: 477 Interpretive Statements Sinus tachycardia RBBB and LPFB. Consider RVH Nonspecific T abnormalities, lateral leads Compared to ECG 01/03/2017 12:08:41 T-wave abnormality now present Electronically Signed On 03-07-2017 15:52:47 HOT METAL CHARGER by Ravi Almaraz [email or web address] <ELECTRONICALLY SIGNED> By: Ravi Almaraz MD, FACC 03/07/17 1552 1621 1621 Ravi Almaraz MD, FAC /EPI
--- NOTE | ~2017-03-06 | HC ---
[facility] [address] [place] [address] CONSULTATION Name: PAWEL LYON Room #: 442-P ADM IN M.R.#: [id number] Admission: 03/06/17 Attend Phys: Luanne Weaver Discharge: Date of : 58 Report #: [id number] THIS REPORT FOR: //name// CC: Darrius Weaver DATE OF SERVICE: 03/09/2017 HISTORY OF PRESENT ILLNESS: The patient is a 56-year-old white female with history of multiple myeloma, was noted to have multiple metastatic areas involving her pelvis and had been having pain with functional mobility. She was transferred over to [facility] for further therapies. While there, she had symptoms that were concerning for a possible stroke prior to dialysis with bilateral upper extremity weakness involving the left hand and the right shoulder. She was readmitted to [facility]. She underwent an MRI of the brain which was negative. MRI of the cervical spine showed some mild to moderate spinal stenosis, but no significant abnormality relative to her symptomatology. Neurology has been involved and they are recommending an EMG as an outpatient. She has a neuropathy of left upper extremity as well as right upper extremity. She is moving the right upper extremity better, but still has significant left upper extremity weakness and wrist drop. She notes that her pelvic pain is better and she is hoping that she will be able to put more weight on her lower extremities and functionally ambulate. We are seeing her in rehabilitation medicine consultation. PAST MEDICAL HISTORY: Extensive and includes end-stage renal disease, on hemodialysis, history of recurrent falls, multiple myeloma, right rotator cuff tear, carpal tunnel bilaterally, coronary artery bypass grafting, hepatitis C, GI bleed, pathological right pelvic fracture, status post stabilization, narcotic overuse, naye placement to left leg. ALLERGIES: MORPHINE. HABITS: No history of tobacco, alcohol abuse. SOCIAL HISTORY: Recently moved into her own apartment with no steps. She does not have any family in the area. She notes that she was in the process of having home based care services and the whole person apparently involved through the state. REVIEW OF SYSTEMS: No current complaints of chest pain, shortness of breath or abdominal discomfort. PHYSICAL EXAMINATION: GENERAL: A 56-year-old white female in no obvious distress. The patient is alert, oriented. [address] [address] CONSULTATION Name: PAWEL LYON Room #: 442-P [facility] IN M.R.#: [id number] Admission: 03/06/17 Attend Phys: Luanne Weaver Discharge: Date of : 58 Report #: [id number] VITAL SIGNS: Last recorded temperature is 97.9, pulse 76, respirations 16, blood pressure 117/75. HEENT: Appeared to be benign. NEUROLOGIC: Cranial nerves are grossly intact. Facies are symmetric. She is currently undergoing dialysis. I did limited testing of the right upper extremity, appears to have strength at least a grade 4-/5 proximal and distal. Left upper extremity, proximal strength is a grade 3+, elbow flexion, extension is 3+. Wrist extension; however, is only trace to none and finger extension is trace to none. She does have some movement of the thumb and fingers however, with manager materials management. I would grade a fair and strength of the thumb and fingers probably a grade 3+. In her lower extremities, there is no focal calf swelling. Denied pain with gentle testing. Appeared to have strength of a grade 3+/5. ASSESSMENT: A 56-year-old white female with the following problem list: 1. 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 Also noted to have a right upper extremity neuropathy. No evidence of CVA or cervical spinal cord involvement per neurology workup. 2. Pathologic fracture, right supra-acetabular area, allowed weightbearing as tolerated per recent ortho evaluation. 3. History of multiple myeloma with multiple metastatic areas including the pelvic area as noted above. 4. End-stage renal disease, on hemodialysis. 5. History of recurrent falls. 6. Prior carpal tunnel bilaterally. 7. History of hepatitis C. PLAN: We will have physical therapy and occupational therapy evaluate her. We will need to see how she does in therapies and follow along with you regarding her rehab therapy needs. Thank you for asking us to assist in this patient's care. <ELECTRONICALLY SIGNED> By: Darrius Castro MD 03/10/17 1123 1139 2352 Darrius Castro MD /PMT
--- NOTE | ~2017-03-06 | HC ---
[facility] [place] [address] [place] [address] CONSULTATION Name: PAWEL LYON Room #: 442-P ADM IN M.R.#: [id number] Admission: 03/06/17 Attend Phys: Luanne Weaver Discharge: Date of : 58 Report #: [id number] THIS REPORT FOR: //name// CC: Darrius Weaver DATE OF SERVICE: 03/07/2017 REASON FOR CONSULTATION: End-stage renal disease and related problems. HISTORY OF PRESENT ILLNESS: This is a 56-year-old female who has end-stage renal disease, has been on dialysis for some time. She has had numerous recent hospitalizations here at [facility]. In fact, she was just here from February 25 through 03/02/2017. Upon discharge, she presented to [facility] where she was to continue getting care. Yesterday, while she was getting dialysis, she had some acute mental status changes. She also developed some weakness and obtundation. She was sent to the Emergency Room and admitted. Workup so far has been fairly unremarkable. Today she complains of difficulty using her hands, worse on the left than the right. She is able to give me otherwise a fairly complete history, talk normally and is very alert and fully conversant. Her end-stage renal disease etiology is unknown. She has been on dialysis for quite a few years, currently doing hemodialysis. Over the past year, she was diagnosed with multiple myeloma, which is a very aggressive myeloma. She has received treatment with Revlimid, Velcade and dexamethasone. That treatment has been incomplete though. She has longstanding hypertension. During her last hospitalization, she was found to have myeloma related bone lesions. She was started on Aredia. In addition, she has a history of coronary artery disease, anemia and severe debility. MEDICATIONS: She is getting Lyrica which was changed to 75 mg b.i.d. She is also getting some cyclobenzaprine. It looks like that has been stopped. Acyclovir 800 mg b.i.d., hydrocodone for pain, aspirin 325 mg daily. ALLERGIES: MORPHINE. FAMILY HISTORY: Noncontributory. SOCIAL HISTORY: The patient is , lives in [place], [place]. More recently, she has been staying at [facility] between her hospitalizations. REVIEW OF SYSTEMS: She states she feels terrible. She is very concerned about the use of her hands. She says over the past few hours, she has regained some of the use of her right hand. She is not able to really extend her left fingers much. She does have movement about shoulder and the elbow. Currently does not [facility] [address] [place] [address] CONSULTATION Name: PAWEL LYON Room #: 442-P ADM IN M.R.#: [id number] Admission: 03/06/17 Attend Phys: Luanne Weaver Discharge: Date of : 58 Report #: [id number] complain of dyspnea, cough or chest pain. Her appetite has been diminished. She has been losing weight and unable to walk much with her fractures and has lot of pain related to that. PHYSICAL EXAMINATION: GENERAL: Chronically ill-appearing female. She is awake, alert and responsive at this time. VITAL SIGNS: Blood pressure 110/72, heart rate 108, temperature 98.8 degrees Fahrenheit, oxygen saturation 94%. HEENT: Shows pupils are equal and reactive. Sclerae are nonicteric. NECK: Veins are not distended. CHEST: Shallow, but clear. CARDIOVASCULAR: Heart has a regular rate and rhythm, large median sternotomy scar. ABDOMEN: Bowel sounds are present, soft, nontender. EXTREMITIES: She has no peripheral edema. NEUROLOGIC: She is very alert, attentive and has normal mentation. She is unable to extend the fingers in her left hand. She actually has fairly good group on both hands 4+. She is able to extend the right hand better. LABORATORY DATA: On admission, sodium 138, potassium 4.4, chloride 96, bicarbonate 31, BUN 28, creatinine 2.9 (those are all post-dialysis). Total protein 7.6, albumin 3.0. White count 11.2, hemoglobin 12.2, hematocrit 37.5, platelets 310,000. ASSESSMENT: 1. End-stage renal disease, dialyzed yesterday. 2. Acute mental status changes. I am concerned that this is more due to medications. She has been on a pretty big dose of Lyrica. I think we should hold that. She has already been taking off the cyclobenzaprine. She is getting some narcotics, but I am not certain that it is that. There was concern that this might be hyperviscosity syndrome. Both her total protein and albumin where they are, I do not see that being the problem. Her mentation is much better and I do not think that is contributing at all, but she has had these isolated neurologic changes. She has been seen by Neurology and an MRI was just done, so we will wait and see what their impressions are. 3. Multiple myeloma with diffuse bony changes. She has been treated, but will need more treatment going forward. 4. Coronary artery disease, previous bypass. 5. Progressive debility and this is very difficult for her. She would rather be at home, but obviously she is unable to take care of herself at this point. We will see how she does going forward down the line. 6. Hold her Lyrica. 7. Repeat labs in the morning. 8. Her next dialysis would be in a few days. [facility] [address] [place] [address] CONSULTATION Name: PAWEL LYON Room #: 442-P ADM IN M.R.#: [id number] Admission: 03/06/17 Attend Phys: Luanne Weaver Discharge: Date of : 58 Report #: [id number] 9. Await opinion of Neurology and also the MRI scan and we will see how she progresses. <ELECTRONICALLY SIGNED> By: Ed Lucas MD 03/09/17 0810 1437 32 Ed Lucas MD /nt
[~2017-03-06 15:38] MED LIST changes: +ACYCLOVIR 400400 MG PO; +ASPIRIN325 PO; +CYCLOBENZAPRINE5 MG PO; +LYRICA 75 MG CA75 MG PO
[2017-03-06 15:40] VITALS: BP 91/64
[2017-03-06 16:08] LABS: HEMATOCRIT 37.5 % (37.0-47.0); HEMOGLOBIN 12.2 gm/dL (12.0-15.0); MANUAL DIFF YES; MCH 28.4 pg (26.0-34.0); MCHC 32.5 g/dL (28.0-37.0); MCV 87.4 fL (80.0-100.0); PLATELET COUNT 310 thou/uL (150-400); RDW 20.5 % (10.5-14.5); WBC 11.2 thou/uL (4.0-11.0)
[2017-03-06 16:18] LABS: ANION GAP 11 mmol/L (7-16); BUN 28 mg/dL (7-18); CALCIUM 9.5 mg/dL (8.5-10.1); CHLORIDE 96 mmol/L (98-107); CO2 31 mmol/L (21-32); CREATININE 2.9 mg/dL (0.6-1.0); GLUCOSE 123 mg/dL (74-106); POTASSIUM 4.4 mmol/L (3.5-5.1); SODIUM 138 mmol/L (136-145)
[2017-03-06 16:23] LABS: PROTIME 9.3 Seconds (9.3-11.4)
[2017-03-06 16:26] LABS: ALKALINE PHOSPHATASE 147 U/L (46-116); SGOT 44 U/L (15-37); SGPT 67 U/L (30-65); TOTAL BILIRUBIN 0.5 mg/dL (<0.1-1.0); TOTAL PROTEIN 7.6 g/dL (6.4-8.2); TROPONIN-I < 0.04 ng/mL (<0.06)
[2017-03-06 16:53] LABS: ABSOLUTE NEUTROPHILS 9.1 thou/uL (1.4-8.2); METAMYELOCYTES 1 %; MYELOCYTES 1 %; TOTAL CELL COUNT 100
[2017-03-06 16:55] LABS: ANISOCYTOSIS 1+
[2017-03-06 17:23] LABS: URINE BILIRUBIN NEGATIVE (Negative); URINE BLOOD 1+ (Negative); URINE COLOR YELLOW; URINE GLUCOSE-RANDOM* NEGATIVE (Negative); URINE KETONES NEGATIVE (Negative); URINE NITRITE NEGATIVE (Negative); URINE PROTEIN (DIPSTICK) 2+ (Negative); URINE SPECIFIC GRAVITY 1.015 (1.005-1.035); URINE UROBILINOGEN 0.2 E.U./dl (0.2-1.0)
[2017-03-06 17:44] LABS: BACTERIA >30 Many /HPF (None Seen); CASTS None Seen /LPF (None Seen); CRYSTALS None Seen /LPF (None Seen); SQUAMOUS 0-3 Few /LPF (0-3); URINE RBC 0-2 Rare /HPF (0-2)
[2017-03-06 18:18] LABS: CHOLESTEROL 199 mg/dL (<200); HDL CHOLESTEROL 57 mg/dL (>40); LDL CHOLESTEROL 102 mg/dL (<100); TC:HDL 3.5 Ratio (Not establshd); TRIGLYCERIDE 200 mg/dL (<150); VLDL 40 mg/dL (<40)
[2017-03-06 19:10] VITALS: BP 99/74
[2017-03-06 20:13] VITALS: BP 98/76
[2017-03-06 21:30] VITALS: BP 91/61
[2017-03-07 04:50] VITALS: BP 109/70
[2017-03-07 07:15] VITALS: BP 110/72
[2017-03-07 15:37] VITALS: BP 94/56
[2017-03-07 17:25] LABS: HEMATOCRIT 30.3 % (37.0-47.0); MCH 28.9 pg (26.0-34.0); MCV 87.9 fL (80.0-100.0); RBC 3.45 mil/uL (4.20-5.00); WBC 7.7 thou/uL (4.0-11.0)
[2017-03-07 17:44] LABS: APTT 25.7 Seconds (24.5-32.8); PROTIME 9.9 Seconds (9.3-11.4)
[2017-03-07 18:03] LABS: TSH 1.16 uIU/mL (0.358-3.740)
[2017-03-07 18:48] LABS: NUMBER OF TUBES 4; VOLUME 10 ml
[2017-03-07 18:49] LABS: CSF CLARITY CLEAR; CSF COLOR COLORLESS
[2017-03-07 18:50] LABS: CSF GLUCOSE 60 mg/dL (40-70); CSF PROTEIN 29 mg/dL (15-45)
[2017-03-07 19:26] LABS: CSF WBC 1 /mm3 (0-10)
[2017-03-07 19:27] LABS: MANUAL DIFF NO
[2017-03-07 20:18] VITALS: BP 106/68
[2017-03-08 06:39] LABS: HEMATOCRIT 28.8 % (37.0-47.0); HEMOGLOBIN 9.4 gm/dL (12.0-15.0); MCH 28.8 pg (26.0-34.0); MCHC 32.8 g/dL (28.0-37.0); MCV 87.7 fL (80.0-100.0); RBC 3.28 mil/uL (4.20-5.00)
[2017-03-08 06:55] LABS: ALBUMIN 2.3 g/dL (3.4-5.0); CALCIUM 7.9 mg/dL (8.5-10.1); PHOSPHORUS 7.7 mg/dL (2.5-4.9); POTASSIUM 5.4 mmol/L (3.5-5.1)
[2017-03-08 06:56] LABS: CREATININE 4.7 mg/dL (0.6-1.0)
[2017-03-08 07:20] VITALS: BP 102/69
[2017-03-08 09:06] LABS: IgG 787 mg/dL (700-1600)
[2017-03-08 10:07] LABS: IgA 34 mg/dL (87-352); IgM 15 mg/dL (26-217)
[2017-03-08 15:42] VITALS: BP 137/91
[2017-03-08 19:42] VITALS: BP 108/71
[2017-03-09 04:54] LABS: HEMATOCRIT 29.2 % (37.0-47.0); HEMOGLOBIN 9.4 gm/dL (12.0-15.0); MCH 28.7 pg (26.0-34.0); MCHC 32.3 g/dL (28.0-37.0); MCV 88.8 fL (80.0-100.0); RBC 3.29 mil/uL (4.20-5.00); RDW 20.3 % (10.5-14.5); WBC 6.1 thou/uL (4.0-11.0)
[2017-03-09 04:59] LABS: ALBUMIN 2.2 g/dL (3.4-5.0); CALCIUM 7.3 mg/dL (8.5-10.1); CREATININE 5.6 mg/dL (0.6-1.0); PHOSPHORUS 8.1 mg/dL (2.5-4.9); POTASSIUM 5.6 mmol/L (3.5-5.1)
[2017-03-09 05:13] VITALS: BP 117/75
[2017-03-09] MEDS ORDERED: ASPIRIN325 PO (11:45)
[2017-03-09] MEDS ORDERED: RENVELA800 MG PO (11:45)
[2017-03-09 16:57] VITALS: BP 102/75
[2017-03-09 19:27] VITALS: BP 118/75
[2017-03-10 05:29] VITALS: BP 102/71
[2017-03-10 07:19] VITALS: BP 118/80
[2017-03-11 16:08] LABS: CSF IgG 1.7 mg/dL (0.0-8.6)
== END 2017-03-10 11:37 | DRG 91 ==
LOC: ER 15:38 → 4S 17:42 → EROBS 17:42 → 4S 21:51
PROVIDERS: Hospitalist; Internal Medicine Nephrology; Nurse Practitioner Family; Psychiatry & Neurology Neuromuscular Medicine
PROC: B01B1ZZ Fluoroscopy of Spinal Cord using Low Osmolar Contrast (ICD-10-PCS; principal; 2017-03-07)
PROC: 009U3ZZ Drainage of Spinal Canal, Percutaneous Approach (ICD-10-PCS; principal; 2017-03-07)
PROC: 5A1D70Z Performance of Urinary Filtration, Intermittent, Less than 6 Hours Per Day (ICD-10-PCS; 2017-03-09)
DX: G83.20 Monoplegia of upper limb affecting unspecified side (principal); N18.6 End stage renal disease; C90.00 Multiple myeloma not having achieved remission; N39.0 Urinary tract infection, site not specified; I12.0 Hypertensive chronic kidney disease with stage 5 chronic kidney disease or end stage renal disease; D64.9 Anemia, unspecified; M89.9 Disorder of bone, unspecified; G62.9 Polyneuropathy, unspecified; I25.10 Atherosclerotic heart disease of native coronary artery without angina pectoris; M19.90 Unspecified osteoarthritis, unspecified site; Z90.49 Acquired absence of other specified parts of digestive tract; Z90.721 Acquired absence of ovaries, unilateral; Z95.1 Presence of aortocoronary bypass graft; Z86.19 Personal history of other infectious and parasitic diseases; Z88.6 Allergy status to analgesic agent; Z99.2 Dependence on renal dialysis
CPT/HCPCS: 10100; 32100

== ENCOUNTER 2017-04-08 10:06 | Emergency (ER) | payer OTHER ==
[~2017-04-08] VITALS: Ht 172.7 cm; Wt 70.3 kg
[2017-04-08 10:32] LABS: HEMOGLOBIN 9.6 gm/dL (12.0-15.0); MCH 29.1 pg (26.0-34.0); MCHC 32.2 g/dL (28.0-37.0); MCV 90.4 fL (80.0-100.0); RBC 3.31 mil/uL (4.20-5.00); RDW 20.4 % (10.5-14.5); WBC 5.2 thou/uL (4.0-11.0)
[2017-04-08 10:40] LABS: CALCIUM 9.6 mg/dL (8.5-10.1); CREATININE 4.2 mg/dL (0.6-1.0); POTASSIUM 4.3 mmol/L (3.5-5.1)
[2017-04-08] MEDS ORDERED: NEOMYCIN/BACIT3.5 G1 OPHTHALMIC (13:11)
[2017-04-08 14:10] VITALS: BP 107/70
== END 2017-04-08 14:30 | disposition home or self-care (01) ==
LOC: ER 10:06
PROVIDERS: Physician Assistant
DX: M80.852A Other osteoporosis with current pathological fracture, left femur, initial encounter for fracture (principal); S05.02XA Injury of conjunctiva and corneal abrasion without foreign body, left eye, initial encounter; I10 Essential (primary) hypertension; M19.90 Unspecified osteoarthritis, unspecified site; K64.9 Unspecified hemorrhoids; Z99.2 Dependence on renal dialysis; Z90.49 Acquired absence of other specified parts of digestive tract; Z90.721 Acquired absence of ovaries, unilateral; Z98.890 Other specified postprocedural states; Z85.830 Personal history of malignant neoplasm of bone; Z88.5 Allergy status to narcotic agent; X58.XXXA Exposure to other specified factors, initial encounter; Y93.89 Activity, other specified; Y92.89 Other specified places as the place of occurrence of the external cause; Y99.8 Other external cause status

== ENCOUNTER → 2017-04-16 | Outpatient (CLI) | payer OTHER ==
[~2017-04-16] MED LIST changes: +ACCUNEB SO1.25 MG/1 INH; +CARAFATE 1 GM TA1 G1 PO; +LOPERAMIDE 2 MG2 M1 PO; +MEGESTROL40 MG/1 M1 PO; +NEOMYCIN/BACIT3.5 G1 OPHTHALMIC; +NEPRO CARB STE237 ML PO; +PROTONIX40 M1 PO; +REMERON15 MG PO; +ZYPREXA2.5 MG PO
== END ==
LOC: CAT 10:32
DX: R41.82 Altered mental status, unspecified (principal); N18.6 End stage renal disease; C90.00 Multiple myeloma not having achieved remission

== ENCOUNTER 2017-05-16 09:34 | Inpatient (IN) | payer OTHER ==
[~2017-05-16] VITALS: Ht 172.7 cm; Wt 68.0 kg
--- NOTE | ~2017-05-16 | H ---
[facility] [place] [address] [place] [address] HISTORY AND PHYSICAL Name: PAWEL LYON Room #: 416-P [facility] IN M.R.#: [id number] Admission: 05/16/17 Attend Phys: Pat Galeas MD Discharge: 05/19/17 Date of : 58 Report #: [id number] THIS REPORT FOR: //name// CC: Darrius Galeas DATE OF SERVICE: 05/16/2017 CHIEF COMPLAINT: Abdominal pain, nausea, pain with defecation. HISTORY OF PRESENT ILLNESS: The patient is a 57-year-old female who resides at [facility]. She presented to ER with chief complaints of abdominal pain, painful defecation. She stated that she had several bowel movements yesterday and they were painful. She cannot specify to me that she had diarrhea or not; however, when she got to the floor, it was noted that the patient has soft stools. When the patient was in the Emergency Department, she had a CAT scan of the abdomen performed, did not show any acute abnormalities. The patient as stated in the ER that she does not want to return to [facility] that she does not think that she gets appropriate care there. PAST MEDICAL HISTORY: End-stage renal disease, hemodialysis, multiple myeloma, history of falling, previous pelvic fracture, hepatitis C, carpal tunnel syndrome, anemia of chronic kidney disease, secondary hyperparathyroidism, fibromyalgia, adult failure to thrive, muscle weakness. MEDICATIONS: Reviewed and reconciled. Please see medication reconciliation form. SOCIAL HISTORY: No smoking. No use of alcohol or any illicit drug use. FAMILY HISTORY: Noncontributory. ALLERGIES: LISTED TO MORPHINE. REVIEW OF SYSTEMS: Denies any headache or dizziness. No chest pain, no shortness of breath. She has abdominal pain, which is generalized. She reports painful defecation and reports several bowel movements. Stated she has those problems for 1 week. Whenever she has bowel movements, it is painful and last night, she stated that she had up to 5-6 bowel movements. She reports nausea, but no vomiting. No pain in the legs. She is not ambulatory she stated because of the fracture in the past. The patient's rest of review of systems is negative except that she also with end-stage renal disease, hemodialysis on Thursday, Thursday, Thursday. PHYSICAL EXAMINATION: GENERAL: The patient not in any distress. [facility] [place] [address] [place] [address] HISTORY AND PHYSICAL Name: PAWEL LYON Room #: 416-P [facility] IN M.R.#: [id number] Admission: 05/16/17 Attend Phys: Pat Galeas MD Discharge: 05/19/17 Date of : 58 Report #: [id number] VITAL SIGNS: Temperature 36.6, pulse is 77, respirations 16, blood pressure 107/70. HEENT: Normocephalic. Oral mucosa pink and dry. NECK: Supple. LUNGS: Showed clear breath sounds. No wheezes, crackles or rhonchi. HEART: S1, S2 normal. Rhythm is regular. ABDOMEN: Soft, mildly tender in mid abdomen. No rebound, no guarding. RECTAL: Area examined. There is superficial skin tear on left buttock. No any hemorrhoids. EXTREMITIES: Showed no edema, no calf tenderness. NEUROLOGIC: No motor or sensory deficit. LABORATORY DATA: White blood cell count 4.6, hemoglobin 12.7, platelets 228, sodium 139, potassium 3.9, BUN 8, creatinine 2.8, glucose 92. Liver enzymes: AST 17, ALT 13, alkaline phosphatase 102, lipase 206. The patient had CT of the abdomen and pelvis done in the Emergency Department, which showed no acute process within the abdomen and pelvis, moderate stool within the colon, more so within the rectosigmoid, which may represent constipation. IMPRESSION AND PLAN: 1. Generalized abdominal pain due to constipation. 2. Constipation. 3. End-stage renal disease, on hemodialysis. 4. History of multiple myeloma. 5. Superficial skin tears around the rectum. 6. The patient is refusing to go back to [facility]. PLAN: We will give the patient mineral oil enema and Dulcolax. Abdominal pain due to constipation. For the skin tear, we will apply Silvadene. Social service was consulted to find different placement. <ELECTRONICALLY SIGNED> By: Pat Galeas MD 06/14/17 1526 1645 1703 Pat Galeas MD /nt
--- NOTE | ~2017-05-16 | HC ---
[facility] [address] [place] [address] CONSULTATION Name: PAWEL LYON Room #: 416-P [facility] IN M.R.#: [id number] Admission: 05/16/17 Attend Phys: Pat Galeas MD Discharge: 05/19/17 Date of : 58 Report #: [id number] THIS REPORT FOR: //name// CC: Darrius Galeas REASON FOR CONSULTATION: End-stage renal disease. REASON FOR PRESENTATION: Nonspecific abdominal pain. HISTORY OF PRESENT ILLNESS: A 57-year-old with end-stage renal disease and advanced myeloma. She has some pathological fractures related to that. She is not undergoing any therapy at this point. She resides at the [facility]. She was not happy with the care there and decided to check herself in the Emergency Room for further evaluation and management. She was found to have fecal impaction. I am being consulted to manage her end-stage renal disease and dialysis-related issues. PAST MEDICAL HISTORY: 1. Myeloma. 2. Pathological fractures. 3. End-stage renal disease, maintained on hemodialysis every Thursday, Thursday and Thursday. 4. Carpal tunnel surgeries. 5. Hyperparathyroidism. 6. Debility. SOCIAL HISTORY: She resides at the [facility]. No drug or alcohol abuse. FAMILY HISTORY: Significant for diabetes mellitus and hypertension. ALLERGIES: MORPHINE. MEDICATIONS: 1. Acyclovir. 2. Aspirin. 3. Sevelamer. 4. Loperamide. 5. Cinacalcet. 6. Olanzapine. REVIEW OF SYSTEMS: GENERAL: Significant for weakness. CARDIOVASCULAR: No chest pain or palpitation. PULMONARY: No cough or hemoptysis. GASTROINTESTINAL: As per the history of present illness. GENITOURINARY: Small amount of urine. [facility] [address] [place] [address] CONSULTATION Name: PAWEL LYON Room #: 416-P [facility] IN M.R.#: [id number] Admission: 05/16/17 Attend Phys: Pat Galeas MD Discharge: 05/19/17 Date of : 58 Report #: [id number] PHYSICAL EXAMINATION: GENERAL: She is alert, oriented. She does not seem to be in any apparent distress. VITAL SIGNS: Temperature 36.6, blood pressure 95/64. HEAD AND NECK: No jugular venous distention, no bruit, no thyromegaly. CHEST: Clear to auscultation bilaterally. CARDIOVASCULAR: Regular, with no rub. ABDOMEN: Soft, nontender. LOWER EXTREMITIES: No edema. LABORATORY DATA: Laboratory values reviewed. Hemoglobin 12.1. Sodium 140, potassium 3.5, BUN 20 and creatinine 4.4. IMAGING DATA: CT reviewed, no acute finding. Stool infection is present. ASSESSMENT, IMPRESSION AND PLAN: 1. End-stage renal disease. 2. Failure to thrive. 3. Constipation. 4. Myeloma, advanced. 5. We will arrange for the patient to have her usual dialysis every Thursday, Thursday and Thursday. Placement issues as the patient is not willing to go back to her usual [facility] and this has been a persistent pattern in the past. She had checked herself out of many facilities in the past. <ELECTRONICALLY SIGNED> By: Verena Anaya MD 05/20/17 1017 0845 1009 Verena Anaya MD /nt
[~2017-05-16 09:34] MED LIST changes: -ACCUNEB SO1.25 MG/1 INH; -CARAFATE 1 GM TA1 G1 PO; -LOPERAMIDE 2 MG2 M1 PO; -MEGESTROL40 MG/1 M1 PO; -NEPRO CARB STE237 ML PO; -PROTONIX40 M1 PO; -REMERON15 MG PO; -ZYPREXA2.5 MG PO
[2017-05-16 09:35] VITALS: BP 109/80
[2017-05-16] MEDS ORDERED: LOPERAMIDE 2 MG2 M1 PO ×2 (09:46→11:46)
[2017-05-16] MEDS ORDERED: ONDANSETRON HCL4 M2 PO (09:46)
[2017-05-16] MEDS ORDERED: MIRALAX17 GM PO (09:47)
[2017-05-16] MEDS ORDERED: ZYPREXA2.5 MG PO (09:47)
[2017-05-16 09:49] LABS: ABSOLUTE NEUTROPHILS 3.3 thou/uL (1.4-8.2); BASOPHILS 0.9 % (0.0-2.0); EOSINOPHILS 2.4 % (0.0-3.0); HEMATOCRIT 39.6 % (37.0-47.0); HEMOGLOBIN 12.7 gm/dL (12.0-15.0); LYMPHOCYTES 19.5 % (24.0-44.0); MCH 29.7 pg (26.0-34.0); MCHC 32.1 g/dL (28.0-37.0); MCV 92.4 fL (80.0-100.0); MONOCYTES 5.6 % (1.0-8.0); PLATELET COUNT 228 thou/uL (150-400); POLYS 71.6 % (36.0-66.0); RBC 4.28 mil/uL (4.20-5.00); RDW 18.6 % (10.5-14.5); WBC 4.6 thou/uL (4.0-11.0)
[2017-05-16] MEDS ORDERED: NEPRO CARB STE237 ML PO (09:51)
[2017-05-16 10:07] LABS: CALCIUM 9.6 mg/dL (8.5-10.1); CREATININE 2.8 mg/dL (0.6-1.0); POTASSIUM 3.9 mmol/L (3.5-5.1)
[2017-05-16 10:11] LABS: ALBUMIN 2.6 g/dL (3.4-5.0); TOTAL BILIRUBIN 0.3 mg/dL (<0.1-1.0); TOTAL PROTEIN 6.3 g/dL (6.4-8.2)
[2017-05-16 12:25] VITALS: BP 96/62
[2017-05-16 12:52] VITALS: BP 119/72
[2017-05-16 13:30] VITALS: BP 107/70
[2017-05-16 20:21] VITALS: BP 105/74
[2017-05-17 04:00] VITALS: BP 145/74
[2017-05-17 05:01] LABS: ALBUMIN 2.5 g/dL (3.4-5.0); CALCIUM 9.5 mg/dL (8.5-10.1); CREATININE 3.5 mg/dL (0.6-1.0); PHOSPHORUS 4.7 mg/dL (2.5-4.9); POTASSIUM 3.2 mmol/L (3.5-5.1)
[2017-05-17 07:25] VITALS: BP 109/72
[2017-05-17 15:35] VITALS: BP 121/81
[2017-05-17 20:39] VITALS: BP 107/71
[2017-05-18 05:12] LABS: HEMATOCRIT 37.5 % (37.0-47.0); HEMOGLOBIN 12.1 gm/dL (12.0-15.0); MCH 29.8 pg (26.0-34.0); MCHC 32.4 g/dL (28.0-37.0); MCV 92.1 fL (80.0-100.0); RBC 4.07 mil/uL (4.20-5.00); WBC 4.6 thou/uL (4.0-11.0)
[2017-05-18 05:14] VITALS: BP 87/59
[2017-05-18 05:21] LABS: CALCIUM 8.8 mg/dL (8.5-10.1); CREATININE 4.4 mg/dL (0.6-1.0); POTASSIUM 3.5 mmol/L (3.5-5.1)
[2017-05-18 08:05] VITALS: BP 95/64
[2017-05-18 16:43] VITALS: BP 99/68
[2017-05-18 19:17] VITALS: BP 74/50
[2017-05-19 04:00] VITALS: BP 75/55
[2017-05-19 07:30] VITALS: BP 90/62
[2017-05-19 13:06] VITALS: BP 98/65
== END 2017-05-19 14:00 | DRG 391 ==
LOC: ER 09:34 → 4N 12:26 → EROBS 12:26 → 4N 12:53
PROVIDERS: Internal Medicine; Physician Assistant
PROC: 5A1D70Z Performance of Urinary Filtration, Intermittent, Less than 6 Hours Per Day (ICD-10-PCS; principal; 2017-05-18)
DX: K59.00 Constipation, unspecified (principal); N18.6 End stage renal disease; C90.00 Multiple myeloma not having achieved remission; N25.81 Secondary hyperparathyroidism of renal origin; I12.0 Hypertensive chronic kidney disease with stage 5 chronic kidney disease or end stage renal disease; E87.6 Hypokalemia; R62.7 Adult failure to thrive; M19.90 Unspecified osteoarthritis, unspecified site; Z90.49 Acquired absence of other specified parts of digestive tract; Z95.1 Presence of aortocoronary bypass graft; Z87.81 Personal history of (healed) traumatic fracture; Z79.899 Other long term (current) drug therapy; Z88.5 Allergy status to narcotic agent; Z99.2 Dependence on renal dialysis; Z82.49 Family history of ischemic heart disease and other diseases of the circulatory system; Z83.3 Family history of diabetes mellitus; Z85.830 Personal history of malignant neoplasm of bone
CPT/HCPCS: 10091; 32100

== ENCOUNTER 2017-08-02 14:16 | Inpatient (IN) | payer OTHER ==
[~2017-08-02] VITALS: Ht 172.7 cm; Wt 53.1 kg
--- NOTE | ~2017-08-02 | HC ---
[facility] [address] [place] [address] CONSULTATION Name: PAWEL LYON Room #: 361-P ADM IN M.R.#: [id number] Admission: 08/02/17 Attend Phys: Duane Ramos DO Discharge: Date of : 58 Report #: [id number] THIS REPORT FOR: //name// CC: Darrius Ramos DATE OF SERVICE: 08/03/2017 HISTORY OF PRESENT ILLNESS: The patient is a 57-year-old female who was taken to the Emergency Room after complaining of neck pain from event at [facility] when her head and neck were pulled backwards when a shirt was being taken off. She has untreated multiple myeloma and I have been asked to see her while an inpatient in consultation. She was treated previously in 12/2016 with RVD, but this was a poorly tolerated due to a decline in her performance status and therapy was stopped. She was seen on 07/14/[address] Mina, who felt that she was too frail for consideration of any therapy and had recommended ongoing palliative care and had discussed hospice. She is now also complaining inability to eat and drink and is to be seen by GI. She has ongoing renal hemodialysis for end-stage renal disease on Thursday, Thursday, and Thursday. Her CT scan shows bilateral pulmonary emboli as well as right lower lobe pneumonia and the patient is not currently receiving any outpatient anticoagulation. She denies any new suspicious palpable masses. FAMILY HISTORY: Not contributory. SOCIAL HISTORY: She is a nondrinker, nonsmoker. PAST MEDICAL HISTORY: Indicated for known chronic renal failure and hemodialysis. She has a shunt. PAST SURGICAL HISTORY: She has had a previous right oophorectomy and tube removal. CURRENT MEDICATIONS: As listed in the MFR. ALLERGIES: SHE IS ALLERGIC TO MORPHINE. REVIEW OF SYSTEMS: As in the history of present illness. PHYSICAL EXAMINATION: GENERAL: Shows alert white female. HEENT: Her mouth is clear. NECK: Supple. [facility] [address] [place] [address] CONSULTATION Name: PAWEL LYON Room #: 361-P ADM IN M.R.#: [id number] Admission: 08/02/17 Attend Phys: Duane Ramos DO Discharge: Date of : 58 Report #: [id number] CHEST: Clear. CARDIOVASCULAR: Normal S1, S2. ABDOMEN: No palpable masses or organomegaly. EXTREMITIES: No clubbing, cyanosis, or edema. NEUROLOGIC: No focal localizing signs. SKIN: Shows normal turgor. LYMPHATICS: Revealed no palpable adenopathy. ASSESSMENT: Light chain myeloma. PLAN: Because of her poor performance status, she has not received any therapy since last fall and undoubtedly has progressive disease. She has been receiving palliative care and also be a candidate for hospice should she elect. I did recommend that she have an informational session while currently an inpatient and Dr. Mina is feeling that she would never be a candidate for further therapy due to her poor performance status. No Followup appointment was made with Dr Mina at this last visit from . Thanks again for notifying us of her hospitalization allowing us to participate in her care. <ELECTRONICALLY SIGNED> By: Maeve Mesa MD 08/04/17 0825 1221 0136 Maeve Mesa MD /nt
--- NOTE | ~2017-08-02 | P ---
[facility] [place] [address] [place] [address] PROCEDURE REPORT Name: PAWEL LYON Room #: 361-P [facility] IN M.R.#: [id number] Admission: 08/02/17 Attend Phys: Duane Ramos DO Discharge: Date of : 58 Report #: [id number] THIS REPORT FOR: //name// CC: Darrius Ramos BRIEF HISTORY: The patient is a 57-year-old woman with recurrent solid food dysphagia. She reports that she is not able to eat or drink significantly due to trouble swallowing. She also complains of cough when swallowing. PREOPERATIVE DIAGNOSIS: Dysphagia and cough. POSTOPERATIVE DIAGNOSES: 1. Multiple duodenal ulcers with clot and evidence of recent bleeding. 2. Moderately severe erosive gastritis. 3. Tertiary contractions of esophagus consistent with presbyesophagus. MEDICATIONS: Deep sedation with propofol per anesthesia. SPECIMEN: 1. Biopsy of a large duodenal bulbar ulcer. 2. Biopsies of gastritis. ESTIMATED BLOOD LOSS: 3 mL. PROCEDURE: EGD with biopsy and hemostasis and Meza dilation. FINDINGS: Prior to propofol sedation, procedure of upper endoscopy and dilation was discussed with the patient as well as potential risks, benefits and its complications. She indicates she understands and desires to proceed. With the patient in the left lateral decubitus position, the [employer] video endoscope was inserted in the cervical esophagus under direct vision without difficulty. Examination of this organ through its entire length revealed intact and normal appearing mucosa. However, she was noted to have evidence of tertiary contractions suggestive of a presbyesophagus. No strictures or masses were seen. A significant hiatus hernia was not seen. The scope was advanced in the stomach, was examined on end view as well as retroflexed views. There are multiple erosions to the antrum of the stomach. She has been on heparin and there was a black eschar on a number of the erosions. However, active bleeding was not seen and blood was not seen in the stomach. On retroflexion, no mass lesions were seen. Examination of the duodenal bulb revealed multiple small duodenal ulcers some with black material in their base. However, there was a very large duodenal ulcer involving about one-third the circumference of the duodenal bulb extending around the angle into the second portion of the duodenum. The edges of the ulcer were heaped up and heaped up edges raised the question of a neoplastic process. Multiple biopsies were obtained. Just beyond [facility] [address] [place] [address] PROCEDURE REPORT Name: PAWEL LYON Room #: 361-P [facility] IN M.R.#: [id number] Admission: 08/02/17 Attend Phys: Duane Ramos DO Discharge: Date of : 58 Report #: [id number] the bulb and the second portion on a fold was another ulcer and there was a dark reddish clot on this ulcer crater. Due to the location just at the angle of the bulb in the second portion, it is difficult to see all of the ulcer. However, we were able to place a clip on this ulcer. There was good hemostasis. At that point, the scope was slowly withdrawn and careful circumferential views confirmed the above findings. The patient tolerated the procedure well. Following the procedure, she was dilated with passage of 50-Sami Meza dilator due to her symptoms. DISPOSITION: The patient with dysphagia and reports she cannot eat. We have dilated her in the past and she reported good success. I suspect she has presbyesophagus. We will see how she does following dilation today. She has multiple duodenal ulcers one of which was a large ulcer with a worrisome appearance. Biopsies were obtained. A red clot and black eschar material was noted suggestive of recent bleeding. The patient has been on heparin. We will speak with the hospitalist about the role of her heparin. I am concerned that she is at risk for gastrointestinal bleeding. We will place her on twice daily PPI at this point in time. By: 1522 [id number] Vinay Enriquez MD /cost[place]
--- NOTE | ~2017-08-02 | HC ---
[facility] [address] [address] [place] [address] CONSULTATION Name: PAWEL LYON Room #: 361-P ADM IN M.R.#: [id number] Admission: 08/02/17 Attend Phys: Duane Ramos DO Discharge: Date of : 58 Report #: [id number] THIS REPORT FOR: //name// CC: Darrius Ramos DATE OF SERVICE: 08/03/2017 NEPHROLOGY CONSULTATION REASON FOR CONSULTATION: End-stage renal disease requiring hemodialysis. HISTORY OF PRESENT ILLNESS: This patient has been on dialysis about 6 years. Over the last 1-2 years, she has been diagnosed with widespread osseous multiple myeloma with several pathological fractures requiring initially surgical repair. She has become progressively debilitated with an initial attempt to treat the myeloma with chemotherapy, but she was unable to tolerate that and has been overly in the extended care facility extremely weak, really unable to get out of bed or care for herself. She has stopped eating, been unable to swallow, easily gets short-winded, has had some neck pain and was admitted to the hospital. PAST MEDICAL HISTORY: End-stage renal disease, hypertension, previous coronary bypass, widespread multiple myeloma, peripheral neuropathy. SOCIAL HISTORY: , living at extended care facility. REVIEW OF SYSTEMS: GENERAL: She is extremely weak, somewhat confused. SKIN: She has got no skin rashes. SKELETAL: Extremely weak, confused and debilitated. HEENT: Eyes: Her vision is okay. ENT: Swallowing okay. ENDOCRINE: No diabetes or thyroid disease. RESPIRATORY: Easily short-winded. CARDIAC: She has had the previous coronary bypass, but no recent chest pains or swelling. GASTROINTESTINAL: Very poor appetite, not able to eat much, difficulty with swallowing. GENITOURINARY: Makes very little urine. NEUROLOGIC: Extreme weak and debilitated. MUSCULOSKELETAL: Severe diffuse pains, particularly in her right side and pelvic areas. PSYCHIATRIC: Somewhat confused. PHYSICAL EXAMINATION: GENERAL: Extremely ill appearing, cachectic patient. SKIN: Unremarkable. [facility] [address] [place] [address] CONSULTATION Name: PAWEL LYON Room #: 361-P [facility] IN M.R.#: [id number] Admission: 08/02/17 Attend Phys: Duane Ramos DO Discharge: Date of : 58 Report #: [id number] SKELETAL: Very thin and cachectic. HEENT: Extraocular movements are full. Vision intact. No scleral icterus. Mucous membranes are dry. NECK: Supple. CHEST: Shows diminished breath sounds. HEART: Regular, but distant. ABDOMEN: Soft and nontender. There is dialysis catheter in her right chest. EXTREMITIES: Show no peripheral edema. NEUROLOGIC: Shows extreme weakness throughout. LABORATORY DATA: White count 8.3, hemoglobin 9.8. Sodium 137, potassium 3.7, chloride bicarbonate 27, creatinine BUN 29. ASSESSMENT: 1. End-stage renal disease. Continue on 3 times weekly dialysis, orders are written. She now dialyzes with a catheter. 2. Widespread multiple myeloma, not felt to be a candidate for further treatment more or less in a palliative situation. 3. Cachexia. She can swallow possibly an EGD may be of help. 4. Pulmonary emboli. She has been found to have pulmonary emboli. These are likely fairly old. She is not acutely short of breath. 5. History of coronary bypass. 6. Cognitive impairment. <ELECTRONICALLY SIGNED> By: Anton Vega MD 08/06/17 1101 [id number] Anton Vega MD /nt
--- NOTE | ~2017-08-02 | HC ---
[facility] [address] [address] CONSULTATION Name: PAWEL LYON Room #: 361-P ADM IN M.R.#: [id number] Admission: 08/02/17 Attend Phys: Duane Ramos DO Discharge: Date of : 58 Report #: [id number] THIS REPORT FOR: //name// CC: Darrius Ramos TYPE OF REPORT: Infectious diseases consultation. REASON FOR CONSULTATION: I was asked to evaluate concerning aspiration healthcare-associated pneumonia. HISTORY OF PRESENT ILLNESS: The patient was a 57-year-old intermediate resident with end-stage renal disease and myeloma, who has had issues with her right AV fistula. This clotted and was unable to be opened in the interventional vascular lab. Now has a right chest dialysis catheter in place. Several days ago, she was being helped taking her shirt off. The got the shirt caught underneath her neck. Since then, she reports having difficulty swallowing, especially with liquids or solid food. Subsequently, she was hospitalized with worsening symptoms. She has had intermittent cough with no sputum production. No fever, chills or sweats. Further evaluation including CT scan of the neck and chest, which revealed pulmonary emboli as well as a right lower lobe consolidation. The patient was a reasonable historian. ALLERGIES: MORPHINE. MEDICATIONS: As noted on her MAR, having been started on Levaquin and continued on acyclovir. Other medications include cinacalcet, aspirin, sevelamer carbonate, fentanyl patch, pregabalin and acyclovir. PAST MEDICAL HISTORY: Multiple myeloma with pathologic fractures, end-stage renal disease, carpal tunnel surgeries, hyperparathyroidism and marked debility. FAMILY HISTORY: Noncontributory other than diabetes and hypertension. SOCIAL HISTORY: long term resident. No tobacco or alcohol use. REVIEW OF SYSTEMS: In addition to the above, she has had no abdominal pain, decubiti. Denies any pleuritic chest pain. PHYSICAL EXAMINATION: VITAL SIGNS: Afebrile, hemodynamically stable. GENERAL: Alert and cooperative. HEENT: Unremarkable. NECK: Supple. Trachea was midline. No thyromegaly. Right chest dialysis catheter unremarkable. LUNGS: Consolidation in the right base posteriorly. HEART: Regular, without murmur. [facility] [address] [place] [address] CONSULTATION Name: PAWEL LYON Room #: 361-P [facility] IN M.R.#: [id number] Admission: 08/02/17 Attend Phys: Duane Ramos DO Discharge: Date of : 58 Report #: [id number] ABDOMEN: Soft and nontender. No hepatosplenomegaly or mass. EXTREMITIES: Unremarkable. Right upper extremity AV graft was nontender. Right chest dialysis catheter site was unremarkable. LABORATORY STUDIES: Sodium 137, potassium 3.7 and creatinine 3.7. Hemoglobin 9.8; WBC 8.3 and platelet count 218,000. Differential unremarkable. RADIOLOGICAL DATA: CT scan of the neck shows paranasal sinuses clear. Oral cavity unremarkable. Upper airway unremarkable. thyroid; right subclavian venous stent; large bilateral joint effusions involving shoulders; consolidating infiltrate, right lower lobe superior segment; bilateral pulmonary emboli and cervical spondylosis. IMPRESSION: A 57-year old with advanced multiple myeloma and end-stage renal disease presents with bilateral pulmonary emboli, odynophagia with dysphagia and a right lower lobe consolidating infiltrate. Most likely aspiration in etiology. The patient is not toxic. White count is normal. She has no cough or sputum production. RECOMMENDATIONS: I would recommend that we continue antibiotic therapy, pending followup chest x-ray. She did have an esophagogastroduodenoscopy to further evaluate her swallowing mechanism. If unable to do this, we would at least consider a video swallow study. We will adjust antibiotics for her end-stage renal disease. <ELECTRONICALLY SIGNED> By: Dimitrios Canales MD 08/04/17 1603 1003 2058 Dimitrios Canales MD /nt
[~2017-08-02 14:16] MED LIST changes: +LOPERAMIDE 2 MG2 M1 PO; +NEPRO CARB STE237 ML PO; +ZYPREXA2.5 MG PO
[2017-08-02 14:17] VITALS: BP 98/75
[2017-08-02 15:23] LABS: ABSOLUTE NEUTROPHILS 8.5 thou/uL (1.4-8.2); BASOPHILS 0.5 % (0.0-2.0); EOSINOPHILS 0.6 % (0.0-3.0); HEMATOCRIT 31.6 % (37.0-47.0); HEMOGLOBIN 10.5 gm/dL (12.0-15.0); LYMPHOCYTES 9.6 % (24.0-44.0); MCH 30.7 pg (26.0-34.0); MCHC 33.2 g/dL (28.0-37.0); MCV 92.5 fL (80.0-100.0); MONOCYTES 3.4 % (1.0-8.0); PLATELET COUNT 227 thou/uL (150-400); POLYS 85.9 % (36.0-66.0); RBC 3.41 mil/uL (4.20-5.00); RDW 16.3 % (10.5-14.5); WBC 9.9 thou/uL (4.0-11.0)
[2017-08-02 15:31] LABS: CALCIUM 9.4 mg/dL (8.5-10.1); CREATININE 3.7 mg/dL (0.6-1.0); POTASSIUM 3.6 mmol/L (3.5-5.1)
[2017-08-02 15:37] LABS: DIRECT BILIRUBIN 0.1 mg/dL (<0.1-0.3); TOTAL BILIRUBIN 0.4 mg/dL (<0.1-1.0)
[2017-08-02 18:05] VITALS: BP 98/75
[2017-08-02 19:15] LABS: APTT 29.9 Seconds (24.5-32.8)
[2017-08-02 19:26] VITALS: BP 69/44
[2017-08-02 19:50] VITALS: BP 90/63
[2017-08-02 23:45] VITALS: BP 86/60
[2017-08-03 04:37] VITALS: BP 88/60
[2017-08-03 06:15] LABS: BASOPHILS 0.2 % (0.0-2.0); EOSINOPHILS 1.2 % (0.0-3.0); HEMATOCRIT 29.8 % (37.0-47.0); HEMOGLOBIN 9.8 gm/dL (12.0-15.0); LYMPHOCYTES 10.5 % (24.0-44.0); MCH 30.7 pg (26.0-34.0); MCV 93.1 fL (80.0-100.0); MONOCYTES 3.4 % (1.0-8.0); PLATELET COUNT 218 thou/uL (150-400); POLYS 84.7 % (36.0-66.0); RDW 16.8 % (10.5-14.5); WBC 8.3 thou/uL (4.0-11.0)
[2017-08-03 06:17] LABS: CALCIUM 8.7 mg/dL (8.5-10.1); CREATININE 3.7 mg/dL (0.6-1.0); POTASSIUM 3.7 mmol/L (3.5-5.1)
[2017-08-03 09:26] VITALS: BP 75/47
[2017-08-03 12:00] VITALS: BP 80/53
[2017-08-03 17:48] VITALS: BP 95/50
[2017-08-03 19:00] VITALS: BP 84/57
[2017-08-03 20:05] VITALS: BP 89/59
[2017-08-04 04:30] VITALS: BP 87/60
[2017-08-04 06:10] LABS: ABSOLUTE NEUTROPHILS 6.2 thou/uL (1.4-8.2); BASOPHILS 0.4 % (0.0-2.0); EOSINOPHILS 1.8 % (0.0-3.0); HEMATOCRIT 31.6 % (37.0-47.0); HEMOGLOBIN 10.2 gm/dL (12.0-15.0); LYMPHOCYTES 12.3 % (24.0-44.0); MCH 30.5 pg (26.0-34.0); MCHC 32.4 g/dL (28.0-37.0); MCV 94.2 fL (80.0-100.0); MONOCYTES 4.3 % (1.0-8.0); PLATELET COUNT 244 thou/uL (150-400); POLYS 81.2 % (36.0-66.0); RBC 3.35 mil/uL (4.20-5.00); RDW 16.6 % (10.5-14.5); WBC 7.6 thou/uL (4.0-11.0)
[2017-08-04 06:25] LABS: ALBUMIN 1.9 g/dL (3.4-5.0); CALCIUM 9.1 mg/dL (8.5-10.1)
[2017-08-04 06:28] LABS: CREATININE 2.3 mg/dL (0.6-1.0)
[2017-08-04 08:47] VITALS: BP 89/63
[2017-08-04 12:43] VITALS: BP 94/75
[2017-08-04 20:23] VITALS: BP 98/78
[2017-08-05 04:10] VITALS: BP 102/73
[2017-08-05 08:15] VITALS: BP 97/70
[2017-08-05 13:36] VITALS: BP 95/67
[2017-08-05 17:45] LABS: HEMATOCRIT 30.3 % (37.0-47.0); HEMOGLOBIN 9.9 gm/dL (12.0-15.0); MCH 30.4 pg (26.0-34.0); MCHC 32.7 g/dL (28.0-37.0); MCV 93.2 fL (80.0-100.0); RBC 3.25 mil/uL (4.20-5.00); RDW 16.3 % (10.5-14.5); WBC 6.5 thou/uL (4.0-11.0)
[2017-08-05 19:18] VITALS: BP 87/60
[2017-08-06 00:15] VITALS: BP 85/59
[2017-08-06 04:10] VITALS: BP 96/69
[2017-08-06 06:43] LABS: ALBUMIN 1.8 g/dL (3.4-5.0); CALCIUM 8.7 mg/dL (8.5-10.1); PHOSPHORUS 4.4 mg/dL (2.5-4.9); POTASSIUM 3.8 mmol/L (3.5-5.1)
[2017-08-06 06:47] LABS: CREATININE 3.5 mg/dL (0.6-1.0)
[2017-08-06 12:16] VITALS: BP 97/67
[2017-08-06 14:11] LABS: IgA 75 mg/dL (87-352); IgG 787 mg/dL (700-1600); IgM 14 mg/dL (26-217)
[2017-08-06 17:46] VITALS: BP 93/63
[2017-08-06 20:09] VITALS: BP 95/65
[2017-08-07 03:45] VITALS: BP 115/80
[2017-08-07 08:33] VITALS: BP 107/75
[2017-08-07 11:46] VITALS: BP 94/68
[2017-08-07 12:40] LABS: BE(vivo) 4.6 mmol/L (-2 to +3); PCO2 42.6 mmHg (35.0-45.0); pH 7.451 (7.360-7.450); sO2 94.5 % (92.0-98.0)
[2017-08-07 16:48] VITALS: BP 98/71
[2017-08-07 19:45] VITALS: BP 98/71
[2017-08-08 05:15] VITALS: BP 93/64
[2017-08-08 11:54] VITALS: BP 91/64
[2017-08-08 15:55] VITALS: BP 92/66
[2017-08-08 17:45] LABS: HEMATOCRIT 30.2 % (37.0-47.0); MCH 30.3 pg (26.0-34.0); MCHC 33.1 g/dL (28.0-37.0); MCV 91.7 fL (80.0-100.0); RBC 3.29 mil/uL (4.20-5.00); RDW 16.1 % (10.5-14.5); WBC 6.9 thou/uL (4.0-11.0)
[2017-08-08 19:22] VITALS: BP 81/57
[2017-08-09] VITALS (8 sets, daily range): BP systolic 89–121; BP diastolic 39–75
[2017-08-10 04:40] VITALS: BP 109/78
[2017-08-10 05:41] LABS: HEMATOCRIT 30.8 % (37.0-47.0); HEMOGLOBIN 10.1 gm/dL (12.0-15.0); MCH 30.4 pg (26.0-34.0); MCHC 32.9 g/dL (28.0-37.0); MCV 92.5 fL (80.0-100.0); RBC 3.33 mil/uL (4.20-5.00); RDW 16.4 % (10.5-14.5); WBC 5.8 thou/uL (4.0-11.0)
[2017-08-10 07:36] VITALS: BP 102/75
[2017-08-10] MEDS ORDERED: ACCUNEB SO1.25 MG/1 INH (11:01)
[2017-08-10] MEDS ORDERED: AUGMENTIN 500-1 EACH PO (11:01)
[2017-08-10] MEDS ORDERED: MEGESTROL40 MG/1 M1 PO (11:02)
[2017-08-10] MEDS ORDERED: CARAFATE 1 GM TA1 G1 PO (11:02)
[2017-08-10] MEDS ORDERED: REMERON15 MG PO (11:02)
[2017-08-10] MEDS ORDERED: PROTONIX40 M1 PO (11:03)
[2017-08-10] MEDS ORDERED: LYRICA 75 MG CA75 MG PO (11:08)
[2017-08-10] MEDS ORDERED: NORCO 5-325 TA1 EACH PO (11:08)
[2017-08-10 11:35] VITALS: BP 105/75
[2017-08-10 12:10] LABS: KAPPA FREE LIGHT CHAINS 52.7 mg/L (3.3-19.4)
== END 2017-08-10 16:47 | DRG 177 ==
LOC: ER 14:16 → EROBS 17:45 → 3W 17:45
PROVIDERS: Emergency Medicine; Family Medicine; Hospitalist; Internal Medicine Hematology & Oncology; Internal Medicine Nephrology; Internal Medicine Pulmonary Disease
PROC: 5A1D70Z Performance of Urinary Filtration, Intermittent, Less than 6 Hours Per Day (ICD-10-PCS; principal; 2017-08-03)
PROC: 5A1D70Z Performance of Urinary Filtration, Intermittent, Less than 6 Hours Per Day (ICD-10-PCS; 2017-08-04)
PROC: 0DB68ZX Excision of Stomach, Via Natural or Artificial Opening Endoscopic, Diagnostic (ICD-10-PCS; 2017-08-07)
PROC: 5A1D70Z Performance of Urinary Filtration, Intermittent, Less than 6 Hours Per Day (ICD-10-PCS; 2017-08-07)
PROC: 0D758ZZ Dilation of Esophagus, Via Natural or Artificial Opening Endoscopic (ICD-10-PCS; 2017-08-07)
PROC: 0DB98ZX Excision of Duodenum, Via Natural or Artificial Opening Endoscopic, Diagnostic (ICD-10-PCS; 2017-08-07)
PROC: 5A1D70Z Performance of Urinary Filtration, Intermittent, Less than 6 Hours Per Day (ICD-10-PCS; 2017-08-10)
DX: J69.0 Pneumonitis due to inhalation of food and vomit (principal); I26.99 Other pulmonary embolism without acute cor pulmonale; N18.6 End stage renal disease; C90.00 Multiple myeloma not having achieved remission; R64 Cachexia; Z68.1 Body mass index [BMI] 19.9 or less, adult; M84.40XA Pathological fracture, unspecified site, initial encounter for fracture; R13.10 Dysphagia, unspecified; M19.90 Unspecified osteoarthritis, unspecified site; E21.3 Hyperparathyroidism, unspecified; G62.9 Polyneuropathy, unspecified; K26.9 Duodenal ulcer, unspecified as acute or chronic, without hemorrhage or perforation; K29.00 Acute gastritis without bleeding; B19.20 Unspecified viral hepatitis C without hepatic coma; K21.9 Gastro-esophageal reflux disease without esophagitis; I11.0 Hypertensive heart disease with heart failure; I25.10 Atherosclerotic heart disease of native coronary artery without angina pectoris; R54 Age-related physical debility; F43.21 Adjustment disorder with depressed mood; R40.0 Somnolence; D64.9 Anemia, unspecified; K22.2 Esophageal obstruction; Z90.49 Acquired absence of other specified parts of digestive tract; Z90.721 Acquired absence of ovaries, unilateral; Z95.1 Presence of aortocoronary bypass graft; Z85.830 Personal history of malignant neoplasm of bone; Z88.6 Allergy status to analgesic agent; Z83.3 Family history of diabetes mellitus; Z82.49 Family history of ischemic heart disease and other diseases of the circulatory system; Z79.82 Long term (current) use of aspirin; Z79.899 Other long term (current) drug therapy
CPT/HCPCS: 10879; 32100; 62110; 62900; 70005

== ENCOUNTER 2017-08-20 11:58 | Emergency (ER) | payer OTHER ==
[~2017-08-20] VITALS: Ht 172.7 cm; Wt 55.3 kg
[~2017-08-20 11:58] MED LIST changes: +ACCUNEB SO1.25 MG/1 INH; +CARAFATE 1 GM TA1 G1 PO; +MEGESTROL40 MG/1 M1 PO; +PROTONIX40 M1 PO; +REMERON15 MG PO
[2017-08-20 13:09] LABS: ABSOLUTE NEUTROPHILS 4.4 thou/uL (1.4-8.2); BASOPHILS 1.3 % (0.0-2.0); EOSINOPHILS 2.1 % (0.0-3.0); HEMOGLOBIN 10.7 gm/dL (12.0-15.0); LYMPHOCYTES 16.1 % (24.0-44.0); MCH 30.5 pg (26.0-34.0); MCHC 32.3 g/dL (28.0-37.0); MCV 94.3 fL (80.0-100.0); MONOCYTES 3.8 % (1.0-8.0); PLATELET COUNT 237 thou/uL (150-400); POLYS 76.7 % (36.0-66.0); WBC 5.8 thou/uL (4.0-11.0)
[2017-08-20 13:19] LABS: POTASSIUM 4.3 mmol/L (3.5-5.1)
== END 2017-08-20 15:31 ==
LOC: ER 11:58
PROVIDERS: Emergency Medicine
DX: R13.10 Dysphagia, unspecified (principal); I10 Essential (primary) hypertension; M19.90 Unspecified osteoarthritis, unspecified site; Z95.1 Presence of aortocoronary bypass graft; Z88.5 Allergy status to narcotic agent

== ENCOUNTER 2017-08-24 05:48 | Emergency (ER) | payer OTHER ==
[~2017-08-24] VITALS: Ht 167.6 cm; Wt 63.5 kg
[2017-08-24 06:59] LABS: HEMATOCRIT 35.4 % (37.0-47.0); HEMOGLOBIN 11.5 gm/dL (12.0-15.0); MCH 30.7 pg (26.0-34.0); MCHC 32.4 g/dL (28.0-37.0); MCV 94.9 fL (80.0-100.0); PLATELET COUNT 260 thou/uL (150-400); RBC 3.74 mil/uL (4.20-5.00); RDW 18.5 % (10.5-14.5)
[2017-08-24 07:01] LABS: CALCIUM 9.3 mg/dL (8.5-10.1); CREATININE 7.9 mg/dL (0.6-1.0); POTASSIUM 5.1 mmol/L (3.5-5.1)
[2017-08-24 07:08] LABS: ALBUMIN 2.1 g/dL (3.4-5.0); DIRECT BILIRUBIN 0.2 mg/dL (<0.1-0.3); TOTAL BILIRUBIN 0.4 mg/dL (<0.1-1.0); TOTAL PROTEIN 6.3 g/dL (6.4-8.2)
[2017-08-24 08:04] LABS: ABSOLUTE NEUTROPHILS 5.5 thou/uL (1.4-8.2); METAMYELOCYTES 1 %
[2017-08-24 08:06] LABS: ANISOCYTOSIS 2+; OVALOCYTES FEW
== END 2017-08-24 09:00 | disposition home or self-care (01) ==
LOC: ER 05:48
PROVIDERS: Emergency Medicine
DX: R53.1 Weakness (principal); R63.0 Anorexia; I10 Essential (primary) hypertension; M19.90 Unspecified osteoarthritis, unspecified site; K64.9 Unspecified hemorrhoids; Z85.830 Personal history of malignant neoplasm of bone; Z90.49 Acquired absence of other specified parts of digestive tract; Z99.2 Dependence on renal dialysis; Z90.721 Acquired absence of ovaries, unilateral; Z98.890 Other specified postprocedural states; Z88.5 Allergy status to narcotic agent